=== PATIENT | female | born 1955 | race Caucasian/White ===

== ENCOUNTER 2024-01-06 20:19 | Emergency (ER) | payer MEDICARE, SELFPAY ==
[2024-01-06 20:20] VITALS: BP 165/110
[2024-01-06] MEDS: VALIUM 2 MG PO (21:25)
--- NOTE | 2024-01-06 21:30 | ED.GENMED ---
History of Present Illness
General
Chief Complaint: Musculo-Skeletal Complaint
Source: patient
Exam Limitations: none
Time Seen by Provider: 01/06/24 21:05
Travel History
Have you had any contact with someone who has COVID-19?: No
Do you have any symptoms of coronavirus? Fever > 100 degrees, chills, cough, shortness of breath, sore throat, loss of taste or smell, muscle aches, or headache?: No
History of Present Illness
History of Present Illness:
This is a 68 year old female that comes in with c/o neck pain. States that she started on Saturday with like a stiff neck. Significant other states that this started before . State that her neck pain has continued to get worse. State that she
has a headache, ear pain and around to the jaw area. States that she has been nauseated with the pain. States that there was no Injury. Denies any new pillows or mattress. Denies any fever, chills, chest pain, SOB, abd pain, vomiting, diarrhea,
dizziness, urinary burning.
Past History
Past History
ED Past Medical History: GERD, HTN, Psychiatric (Anxiety, Depression, OCD, Panic disorder), Other (DJD, C. difficile, uterine fibroids, Back pain, IBS) and Other (C. difficile colitis)
ED Past Surgical History: Cholecystectomy, Gynecological (Uterine ablation) and Other (cataracts)
Social History
Tobacco: Non-smoker
Alcohol: None
Personal:
Living: with family
Review of Systems
Review of Systems
All Other Systems: ROS reviewed and negative except as documented in HPI and ROS
Constitutional: Reports no symptoms; Denies fever or chills
EENT: Reports no symptoms
Respiratory: Reports no symptoms; Denies cough or trouble breathing
Cardiac: Reports no symptoms; Denies chest pain
ABD/GI: Reports nausea; Denies abdominal pain, vomiting or diarrhea
: Reports no symptoms; Denies dysuria, frequency or urgency
Musculoskeletal: Reports neck pain
Skin: Reports no symptoms
Neurological: Reports headache; Denies dizzy
Psychiatric: Reports no symptoms
Phy Exam
General Physical Exam
General Presentation: no apparent distress
General age: appears stated age
General Skin: warm and dry
General Habitus: normal
General Mental: alert
General Hydration: appears well hydrated
ENT Exam
ENT Exam: TM's normal and pharynx normal
Eye Exam
Eye Exam: EOMI
Cardiovascular Exam
Cardiovascular Exam: regular rate/rhythm, no edema and normal peripheral pulses
Pulmonary Exam
Pulmonary Exam: lungs clear, no respiratory distress, no rales, chest non tender, no crackles, no rhonchi, no wheezing and no cough
Gastrointestinal Exam
Gastrointestinal Exam: normal bowel sounds, non tender, soft, no organomegaly, no pulsatile mass, non distended and other (obese)
Musculoskeletal Exam
Musculoskeletal Exam: full ROM and neck pain (Neck tenderness lateral to the neck and into the Trapeziums muscle, Difficulty moving head due to neck pain)
Skin Exam
Skin Exam: normal color, warm/dry, no rash and no petechia
Psychiatric Exam
Psychiatric Exam: normal mood/affect
Course
Orders/Labs/Results
Orders:
Orders
01/06/24 21:16
CT Cervical Spine W/o Iv Contr Urgent
Comment:
Reason For Exam: Neck pain
Dexamethasone Sod Phosphate [Decadron] 20 mg IV NOW STA
Diazepam [Valium] 2 mg PO NOW STA
01/06/24 21:31
CT Head W/o Iv Contrast Urgent
Comment:
Reason For Exam: Headache, Neck pain from the base of the skull
01/06/24 21:33
Complete Blood Count/With Diff Urgent
Comprehensive Metabolic Panel Urgent
Abnormal Lab Results
01/06/24
21:33
RBC 4.07 L 10^6/uL
(4.20-5.40)
Hct 36.0 L %
(37.0-47.0)
MCH 31.2 H pg
(27.0-31.0)
Abs Immat Gran (auto) 0.1 H 10^3/uL
(0-0.05)
Absolute Neuts (auto) 6.9 H 10^3/uL
(1.4-6.5)
Immature Gran % 0.7 H %
(0-0.5)
Lymphocytes % 17.9 L %
(20.5-51.1)
Sodium 133 L mmol/L
(135-145)
Chloride 94 L mmol/L
(98-107)
Glucose 147 H mg/dl
(70-99)
AST 57 H U/L
(14-36)
ALT 73 H U/L
(0-35)
01/06/24 21:33
01/06/24 21:33
Sodium slightly low. Chloride low. Glucose nonfasting. AST/ALT elevation.
Vital Signs
Initial and Last Documented VS:
Initial Vital Signs
Temp Pulse Resp BP Pulse Ox
97.8 F 114 28 165/110 98
01/06/24 20:20 01/06/24 20:20 01/06/24 20:20 01/06/24 20:20 01/06/24 20:20
Last Documented Vital Signs
Temp Pulse Resp BP Pulse Ox
97.8 F 114 28 165/110 98
01/06/24 20:20 01/06/24 20:20 01/06/24 20:20 01/06/24 20:20 01/06/24 20:20
MDM/Problems Addressed
Differential Diagnosis Includes:
Cervical muscle spasm. Degenerative disc disease
MDM/Problems Addressed:
This is a 68 year old female that comes in with c/o neck pain. States that this started on Saturday and her significant other states that it started before . States that it then got worse on Saturday. States that she has discomfort form the
base of the skull lateral to the cervical spine and into the shoulder and around to the front of her neck.
Will check labs, CT head and neck. Will give Valium to relax the muscles.
Back into see patient. Reviewed labs and CT findings. Will place patient on Flexeril and she can alternate with Tylenol 1000mg every 6 hours and Ibuprofen 600mg every 6 hour to help with pain. Patient to follow up with the family doctor or the
computer support specialist instructor. Patient to return with any concerns .
Chronic conditions affecting care:
NA
Acute Exacerbation and/or Progression of Chronic Illness:
NA
*Radiology
Radiology exam reviewed: radiology read reviewed (CT head-No acute intracranial abnormality noted. Cervical spine- No acute fracture the cervical spine. Mild reversal of normal cervical spinal lordosis. New. This can be seen with muscular spasm.
Multilevel degenerative disc disease as described above. Progressed at each level. )
*Pulse Oximetry
Patient hypoxic: no
*EKG
Interpreted by ED Provider?: NA
Rate: EKG- N/A
*Material Worker Interpretation
Rate: Material Worker- N/A
*Critical Care Note
Total Time (30-74mins, 75-104mins- exclusive of procedures): Not Applicable
ED Attending Note
-
Portions of this chart may have been created with voice recognition software.� Occasional wrong word or��sound alike� substitutions may have occurred due to the inherent limitations of voice recognition software.
Discharge Plan
Departure
Patient Disposition: Home (Routine Discharge)
Date of Disposition: 01/06/24
Time of Disposition: 23:11
Patient with high blood pressure during this ER visit?: Yes
Condition: Good
Covid-19: Not Applicable
Discharge Problem:
Cerivcal muscle spasm
Instructions: Muscle Spasms (DC), BLOOD PRESSURE
Prescriptions:
New
cyclobenzaprine 10 mg tablet
10 mg PO TID PRN (Reason: Muscle spasm) Qty: 15 0RF
No Action
Magnesium
1 tab PO DAILY Qty: 0 0RF
gabapentin 400 mg Capsule
400 mg PO BID
hydrochlorothiazide 25 mg Tablet
25 mg PO DAILY
lisinopril 40 mg Tablet
40 mg PO DAILY
hydromorphone [Dilaudid] 2 mg tablet
2 mg PO Q8H PRN (Reason: Pain) Qty: 6 0RF
Referrals:
Linh Lopez CRNP [Family Provider] - Call in 1-3 days for appt
Daryl Yañez MD [Active] - Call in 1-3 days for appt
Activity Restrictions/Additional Instructions:
As discussed, your blood work shows that your liver enzymes are slightly elevated. This can be due to a virus or medication. Please follow up with your family doctor for repeat labs. Your CT of the head is normal and your CT of the cervical spine
shows that there is muscle spasms. You have been given a Prescription for Flexeril and this has been sent to your Pharmacy. You have been given your first dose here. This can make your tired. Please no driving or alcohol when taking. You may also
use heat or ice to the neck. Please use Tylenol 1000mg every 6 hours for pain and alternate with Ibuprofen 600mg every 6 hours with food for pain. So it you take Tylenol at 9am, the Ibuprofen can be taken at 12noon and the Tylenol will be due at 3pm
and Ibuprofen at 6pm. Follow up with the family doctor or the computer support specialist instructor for further evaluation. IF YOU HAVE ANY OTHER CONCERNS PLEASE RETURN TO THE EMERGENCY ROOM.
Interventions
Interventions:
*Risk Screen - Suicide Last Done: 01/06/24 20:20
*Neglect/Abuse Screening Last Done: 01/06/24 20:20
ED- Fall Risk Assessment Last Done: 01/06/24 21:25
*ED COVID-19 Vaccine History Last Done: 01/06/24 21:36
ED-Musculoskeletal Assessment Last Done: 01/06/24 21:25
Discharge Date and Time
Print Language: MOSOTHO
[2024-01-06] MEDS: DECADRON 20 MG IV (21:33)
[2024-01-06 21:36] VITALS: BMI 42.7
[2024-01-06 21:43] LABS: % Basophils 0.3 % (0-2); % Eosinophils 1.4 % (0-6); % Immature Granulocytes 0.7 % (0-0.5); % Lymphocytes 17.9 % (20.5-51.1); % Monocytes 6.4 % (1.7-9.3); % Neutrophils 73.3 % (42.2-75.2); Absolute Eosinophils 0.1 10^3/uL (0-0.7); Absolute Immature Granulocytes 0.1 10^3/uL (0-0.05); Absolute Lymphocytes 1.7 10^3/uL (1.2-3.4); Absolute Monocytes 0.6 10^3/uL (0.1-0.6); Absolute Neutrophils 6.9 10^3/uL (1.4-6.5); Hemoglobin 12.7 g/dL (12.0-16.0); Mean Corp Hgb Conc. 35.3 g/dL (33.0-37.0); Mean Corpuscular Hgb 31.2 pg (27.0-31.0); Mean Corpuscular Volume 88.5 fL (81.0-99.0); Nucleated Red Blood Cells % 0 %; Platelet Count 287 10^3/uL (130-400); Red Blood Cell Count 4.07 10^6/uL (4.20-5.40); Red Cell Dist. Width 12.7 % (11.5-14.5); White Blood Cell Count 9.4 10^3/uL (4.8-10.8)
[2024-01-06 22:10] LABS: ALT (SGPT) 73 U/L (0-35); AST (SGOT) 57 U/L (14-36); Albumin 4.4 g/dl (3.5-5.0); Alkaline Phosphatase 111 U/L (38-126); Blood Urea Nitrogen 17 mg/dl (7-17); Carbon Dioxide 30 mmol/L (22-30); Chloride 94 mmol/L (98-107); Estimated Creatinine Clearance 105 ml/min; Glucose 147 mg/dl (70-99); Sodium 133 mmol/L (135-145); Total Bilirubin 0.4 mg/dl (0.2-1.3); Total Protein 7.4 g/dl (6.3-8.2); eGFR > 60.00
[2024-01-06] MEDS: FLEXERIL 10 MG PO (23:14)
[2024-01-06 23:17] VITALS: BP 150/68
== END 2024-01-06 23:25 | disposition home or self-care (01) ==
LOC: EMR 20:19
PROVIDERS: Clinical Nurse Specialist Family Health; EMERGENCY PHYSICIAN Emergency Medicine; FAMILY PHYSICIAN Nurse Practitioner Adult Health
DX: M54.2 Cervicalgia (principal); K21.9 Gastro-esophageal reflux disease without esophagitis; I10 Essential (primary) hypertension; F41.8 Other specified anxiety disorders; F42.9 Obsessive-compulsive disorder, unspecified; F41.0 Panic disorder [episodic paroxysmal anxiety]; K58.9 Irritable bowel syndrome, unspecified; Z90.49 Acquired absence of other specified parts of digestive tract
CPT/HCPCS: 99284; 96374; 70450; 72125; 80053; 85025

== ENCOUNTER 2024-06-13 10:27 | Emergency (ER) | payer MEDICARE, SELFPAY ==
[2024-06-13 10:41] VITALS: BP 172/94
--- NOTE | 2024-06-13 10:56 | ED.GENMED ---
History of Present Illness
<Estella Hurtado, PAN HELPER - Last Filed: 06/13/24 16:03>
General
Chief Complaint: Throat Problem
Source: patient
Exam Limitations: none
Time Seen by Provider: 06/13/24 10:55
Nursing documentation reviewed up to this point in time: agreed with
History of Present Illness
History of Present Illness:
69 yo female w h/o HTN, GERD, OCD, Anxiety/depression, panic disorder, presents stating she developed a right ear ache 5 days ago that has gradually become more painful with pain spreading down right side of neck, under chin and she also has a
headache which is not unusual 'but I always get headaches.' Denies fever, chills, feels nausea, no vomiting.
Past History
<Estella Hurtado, PAN HELPER - Last Filed: 06/13/24 16:03>
Past History
ED Past Medical History: GERD, HTN, Psychiatric (Anxiety, Depression, OCD, Panic disorder), Other (DJD, C. difficile, uterine fibroids, Back pain, IBS) and Other (C. difficile colitis)
ED Past Surgical History: Cholecystectomy, Gynecological (Uterine ablation) and Other (cataracts)
Social History
Tobacco: Non-smoker
Alcohol: None
Personal:
Living: with family
Review of Systems
<Estella Hurtado, PAN HELPER - Last Filed: 06/13/24 16:03>
Review of Systems
Allergies reviewed?: Yes
All Other Systems: ROS reviewed and negative except as documented in HPI and ROS
Constitutional: Denies fever or chills
EENT: Reports other (pain right ear, right side throat, right side face); Denies sore throat, mouth pain or mouth swelling
Respiratory: Denies trouble breathing
Cardiac: Denies chest pain
ABD/GI: Denies abdominal pain, nausea or vomiting
: Denies dysuria or difficulty voiding
Musculoskeletal: Reports no symptoms
Skin: Reports no symptoms
Neurological: Reports headache; Denies dizzy, weakness or numbness
Phy Exam
<Estella Hurtado PAN HELPER - Last Filed: 06/13/24 16:03>
Physical Exam
Physical Exam:
GENERAL: No acute distress. A&Ox3.
CONSTITUTIONAL: Afebrile.
EYES: PERRL, conjunctivae normal
Neck: Supple, fatty tissue under chin with a rubbery, firm mobile palpable mass about 1 cm in size. No notable swelling of neck. Skin is not swollen or red, no vesicular rash. There are scattered scaly eczema like lesions over both sided of face.
ENMT: moist mucus membranes, Pharynx nl, swallowing and speaking well. No dental pain to palpation. No intraoral lesions. No trismus. Tongue and uvula midline. R ear very tender with examination, no erythema or swelling of the outer ear. Tragus
very tender to touch, no mastoid tenderness. Tender over TMJ, right side neck to clavicle. No redness or swelling of these areas.
RESPIRATORY: Regular respirations, nonlabored, lungs clear.
CARDIOVASCULAR: Regular rate and rhythm, no murmurs, no rubs.
GI: Soft, nontender, normal BS
MUSCULOSKELETAL: Moves with ease. Well perfused.
SKIN: Warm, dry, pink
PSYCH: Normal mood and affect. Well kept, interactive and appropriate
NEUROLOGIC: Awake, alert and oriented. No focal neurological deficits
Course
<Estella Hurtado, PAN HELPER - Last Filed: 06/13/24 16:03>
Orders/Labs/Results
Orders:
Orders
06/13/24 11:12
CT Neck With Iv Contrast Urgent
Comment:
Reason For Exam: right side neck, ear, submandibular pain
06/13/24 11:13
0.9% Sodium Chloride 500 ml [Nss] 500 ml IV BOLUS
HYDROmorphone [Dilaudid] 0.5 mg IV NOW STA
06/13/24 11:23
Complete Blood Count/With Diff Urgent
Comprehensive Metabolic Panel Urgent
06/13/24 13:50
Azithromycin [Zithromax] 500 mg PO NOW STA
Abnormal Lab Results
06/13/24
11:23
RBC 4.17 L 10^6/uL
(4.20-5.40)
Hct 35.5 L %
(37.0-47.0)
Immature Gran % 0.6 H %
(0-0.5)
Monocytes % 9.6 H %
(1.7-9.3)
Sodium 130 L mmol/L
(135-145)
Chloride 88 L mmol/L
(98-107)
Carbon Dioxide 31 H mmol/L
(22-30)
Glucose 118 H mg/dl
(70-99)
AST 55 H U/L
(14-36)
ALT 55 H U/L
(0-35)
06/13/24 11:23
06/13/24 11:23
Vital Signs
Initial and Last Documented VS:
Initial Vital Signs
Temp Pulse Resp BP Pulse Ox
98 F 87 18 172/94 96
06/13/24 10:41 06/13/24 10:41 06/13/24 10:41 06/13/24 10:41 06/13/24 10:41
Last Documented Vital Signs
Temp Pulse Resp BP Pulse Ox
98 F 80 16 132/74 95
06/13/24 10:41 06/13/24 13:50 06/13/24 13:50 06/13/24 13:47 06/13/24 11:55
<Tg Young MD - Last Filed: 06/13/24 11:14>
Orders/Labs/Results
Orders:
Orders
06/13/24 11:12
CT Neck With Iv Contrast Urgent
Comment:
Reason For Exam: right side neck, ear, submandibular pain
06/13/24 11:13
0.9% Sodium Chloride 500 ml [Nss] 500 ml IV BOLUS
HYDROmorphone [Dilaudid] 0.5 mg IV NOW STA
06/13/24 11:23
Complete Blood Count/With Diff Urgent
Comprehensive Metabolic Panel Urgent
06/13/24 13:50
Azithromycin [Zithromax] 500 mg PO NOW STA
Abnormal Lab Results
06/13/24
11:23
RBC 4.17 L 10^6/uL
(4.20-5.40)
Hct 35.5 L %
(37.0-47.0)
Immature Gran % 0.6 H %
(0-0.5)
Monocytes % 9.6 H %
(1.7-9.3)
Sodium 130 L mmol/L
(135-145)
Chloride 88 L mmol/L
(98-107)
Carbon Dioxide 31 H mmol/L
(22-30)
Glucose 118 H mg/dl
(70-99)
AST 55 H U/L
(14-36)
ALT 55 H U/L
(0-35)
06/13/24 11:23
06/13/24 11:23
Vital Signs
Initial and Last Documented VS:
Initial Vital Signs
Temp Pulse Resp BP Pulse Ox
98 F 87 18 172/94 96
06/13/24 10:41 06/13/24 10:41 06/13/24 10:41 06/13/24 10:41 06/13/24 10:41
Last Documented Vital Signs
Temp Pulse Resp BP Pulse Ox
98 F 80 16 132/74 95
06/13/24 10:41 06/13/24 13:50 06/13/24 13:50 06/13/24 13:47 06/13/24 11:55
<Estella Hurtado PAN HELPER - Last Filed: 06/13/24 16:03>
MDM/Problems Addressed
Differential Diagnosis Includes:
AOM, AOE, lymphadenopathy, abscess, shingles
MDM/Problems Addressed:
69 yo female w h/o HTN, GERD, OCD, Anxiety/depression, panic disorder, presents stating she developed a right ear ache 5 days ago that has gradually become more painful with pain spreading down right side of neck, under chin and she also has a
headache which is not unusual 'but I always get headaches.' Denies fever, chills, feels nausea, no vomiting.
No vesicular rash, no erythema, would expect rash by now, the 5th day of symptoms
R ear very tender with examination. No redness or swelling of external ear or surrounding skin.
Mass under chin could be reactive lymph node.
Rash on face is bilateral, scaly and consistent with eczema, not shingles.
Case discussed with Dr. Young who evaluated pt.
CBC normal
CMP: Mild hyponatremia IVF's infusing
1:[address] neck with IV contrast radiology report read: IMPRESSION:
1. Interval increase in mild bilateral level 1 cervical lymphadenopathy (right greater than left) since the prior examination performed 01/06/2024. Diagnostic possibilities are (1) acute infectious or inflammatory lymphadenopathy given pain in
this region or (2) less likely malignant lymphadenopathy such as lymphoma.
2. Mildly enlarged bilateral intraparotid lymph nodes.
3. Severe discogenic degenerative disease at C5/C6 and C6/C7 with disc-osteophyte complexes causing mild spinal cord compression and central canal stenosis at both levels.
Discussed findings with pt and son
Rx for Z pack sent to her pharmacy for AOM
Ibuprofen as needed for pain
F/U with PCP or ENT
BP normalized.
<Estella Hurtado PAN HELPER - Last Filed: 06/13/24 16:03>
*Critical Care Note
Total Time (30-74mins, 75-104mins- exclusive of procedures): Not Applicable
ED Attending Note
<Estella Hurtado NP - Last Filed: 06/13/24 16:03>
-
Portions of this chart may have been created with voice recognition software.� Occasional wrong word or��sound alike� substitutions may have occurred due to the inherent limitations of voice recognition software.
<Tg Young MD - Last Filed: 06/13/24 11:14>
ED Attending Note
Patient seen and examined by attending physician: Yes
I performed the substantive portion of visit, reviewed & personally made and approve the management plan that is documented in note by myself or DILLON.: Yes
ED Attending Note:
Patient presents with gradual onset of right ear pain which she states has progressed to causing a headache and radiation of pain and swelling under her chin area. Patient appears nontoxic. She is able to speak and swallow without difficulty.
There is no trismus or tongue protrusion. There is no pooling of saliva. Patient has significant ear pain when I look at her right tympanic membrane. Patient has firm tenderness of her submandibular area, which may be an inflamed gland. Due to
her significant submandibular pain, we will do a CT with IV contrast to rule out deep space infection.
Discharge Plan
Departure
Patient Disposition: Home (Routine Discharge)
Date of Disposition: 06/13/24
Time of Disposition: 13:45
Patient with high blood pressure during this ER visit?: No
Condition: Good
Discharge Problem:
Right acute otitis media, Lymphadenopathy of left cervical region
Instructions: Lymphadenitis (DC), Ear Infections in Adults (DC)
Prescriptions:
New
azithromycin 250 mg tablet
250 mg PO DAILY 4 Days Qty: 4 0RF
No Action
Magnesium
1 tab PO DAILY Qty: 0 0RF
gabapentin 400 mg Capsule
400 mg PO BID
hydrochlorothiazide 25 mg Tablet
25 mg PO DAILY
lisinopril 40 mg Tablet
40 mg PO DAILY
hydromorphone [Dilaudid] 2 mg tablet
2 mg PO Q8H PRN (Reason: Pain) Qty: 6 0RF
cyclobenzaprine 10 mg tablet
10 mg PO TID PRN (Reason: Muscle spasm) Qty: 15 0RF
Referrals:
Linh Lopez CRNP [Family Provider] - Call in 1-3 days for appt
Activity Restrictions/Additional Instructions:
As we discussed, I sent a prescription to your pharmacy for Azithromycin to take 250 mg daily for 4 days starting tomorrow as we gave you a dose here today.
See your doctor or the ENT doctor in 5-7 days for recheck
Interventions
Interventions:
*Risk Screen - Suicide Last Done: 06/13/24 10:29
*General Assessment Last Done: 06/13/24 10:41
*Neglect/Abuse Screening Last Done: 06/13/24 10:41
ED- Fall Risk Assessment Last Done: 06/13/24 14:00
*ED COVID-19 Vaccine History Last Done: 06/13/24 11:37
*Nursing Disposition Last Done: 06/13/24 14:00
ED-EENT Assessment Last Done: 06/13/24 11:37
ED- Pulmonary Assessment Last Done: 06/13/24 11:37
Discharge Date and Time
Discharge Date/Time: 06/13/24 14:00
Print Language: ROMANIAN
[2024-06-13] MEDS: DILAUDID 0.5 MG IV (11:26)
[2024-06-13] MEDS: NSS 500 IV (11:26)
[2024-06-13 11:33] VITALS: BP 177/107
[2024-06-13 11:33] LABS: % Basophils 0.5 % (0-2); % Eosinophils 1.9 % (0-6); % Immature Granulocytes 0.6 % (0-0.5); % Lymphocytes 20.5 % (20.5-51.1); % Monocytes 9.6 % (1.7-9.3); % Neutrophils 66.9 % (42.2-75.2); Absolute Eosinophils 0.1 10^3/uL (0-0.7); Absolute Lymphocytes 1.3 10^3/uL (1.2-3.4); Absolute Monocytes 0.6 10^3/uL (0.1-0.6); Absolute Neutrophils 4.3 10^3/uL (1.4-6.5); Hematocrit 35.5 % (37.0-47.0); Hemoglobin 12.8 g/dL (12.0-16.0); Mean Corp Hgb Conc. 36.1 g/dL (33.0-37.0); Mean Corpuscular Hgb 30.7 pg (27.0-31.0); Mean Corpuscular Volume 85.1 fL (81.0-99.0); Mean Platelet Volume 9.2 fL (7.4-10.4); Nucleated Red Blood Cells % 0 %; Platelet Count 273 10^3/uL (130-400); Red Blood Cell Count 4.17 10^6/uL (4.20-5.40); Red Cell Dist. Width 12.3 % (11.5-14.5); White Blood Cell Count 6.4 10^3/uL (4.8-10.8)
[2024-06-13 11:43] LABS: ALT (SGPT) 55 U/L (0-35); AST (SGOT) 55 U/L (14-36); Albumin 4.4 g/dl (3.5-5.0); Alkaline Phosphatase 90 U/L (38-126); Blood Urea Nitrogen 13 mg/dl (7-17); Calcium 9.4 mg/dl (8.4-10.2); Carbon Dioxide 31 mmol/L (22-30); Chloride 88 mmol/L (98-107); Glucose 118 mg/dl (70-99); Potassium 3.8 mmol/L (3.5-5.1); Sodium 130 mmol/L (135-145); Total Bilirubin 0.9 mg/dl (0.2-1.3); Total Protein 7.2 g/dl (6.3-8.2); eGFR > 60.00
[2024-06-13 13:47] VITALS: BP 132/74
[2024-06-13] MEDS: ZITHROMAX 500 MG PO (13:55)
== END 2024-06-13 14:00 | disposition home or self-care (01) ==
LOC: EMR 10:27
PROVIDERS: Registered Nurse; EMERGENCY PHYSICIAN Emergency Medicine; FAMILY PHYSICIAN Nurse Practitioner Adult Health
DX: H66.91 Otitis media, unspecified, right ear (principal); R59.0 Localized enlarged lymph nodes; R51.9 Headache, unspecified; R22.0 Localized swelling, mass and lump, head; R68.84 Jaw pain; R21 Rash and other nonspecific skin eruption; E87.1 Hypo-osmolality and hyponatremia; M50.022 Cervical disc disorder at C5-C6 level with myelopathy; M48.02 Spinal stenosis, cervical region; I10 Essential (primary) hypertension; K21.9 Gastro-esophageal reflux disease without esophagitis; F42.9 Obsessive-compulsive disorder, unspecified; F41.9 Anxiety disorder, unspecified; F32.A Depression, unspecified; F41.0 Panic disorder [episodic paroxysmal anxiety]; K58.9 Irritable bowel syndrome, unspecified; K52.9 Noninfective gastroenteritis and colitis, unspecified; M19.90 Unspecified osteoarthritis, unspecified site; Z90.49 Acquired absence of other specified parts of digestive tract; Z88.5 Allergy status to narcotic agent; Z88.0 Allergy status to penicillin; Z88.2 Allergy status to sulfonamides; Z88.8 Allergy status to other drugs, medicaments and biological substances; Z88.1 Allergy status to other antibiotic agents; Z91.040 Latex allergy status
CPT/HCPCS: 99285; 96361; 96374; 70491; 80053; 85025; Q9967

== ENCOUNTER 2024-06-14 19:38 | Inpatient (IN) | payer MEDICARE, SELFPAY ==
[2024-06-14] VITALS (9 sets, daily range): BP systolic 132–158; BP diastolic 67–95; BMI 41.1; BMI 40.5
--- NOTE | 2024-06-14 15:33 | ED.GENMED ---
History of Present Illness
<Peyton Shi NP - Last Filed: 06/14/24 22:15>
General
Chief Complaint: Facial Problem
Source: patient
Exam Limitations: none
Time Seen by Provider: 06/14/24 15:15
Nursing documentation reviewed up to this point in time: agreed with
History of Present Illness
History of Present Illness:
Patient to ED with complaint of severe right ear and facial pain. States her ear pain started on saturday and continued to worsen. Reports right facial rash involving right ear, right cheeck and jaw, lips, tongue. Taking tylenol without any pain
relief. Reports difficulty swallowing due to pain. Brought to ED todayby son for eval.
Past History
<Peyton Shi NP - Last Filed: 06/14/24 22:15>
Past History
ED Past Medical History: GERD, HTN, Psychiatric (Anxiety, Depression, OCD, Panic disorder), Other (DJD, C. difficile, uterine fibroids, Back pain, IBS) and Other (C. difficile colitis)
ED Past Surgical History: Cholecystectomy, Gynecological (Uterine ablation) and Other (cataracts)
Social History
Tobacco: Non-smoker
Alcohol: None
Personal:
Living: with family
Review of Systems
<Peyton Shi NP - Last Filed: 06/14/24 22:15>
Review of Systems
Allergies reviewed?: Yes
All Other Systems: ROS reviewed and negative except as documented in HPI and ROS
Constitutional: Reports fatigue
EENT: Reports mouth pain (pain to mouth, lips, tongue)
Respiratory: Reports no symptoms
Cardiac: Reports no symptoms
ABD/GI: Reports no symptoms
: Reports no symptoms
Musculoskeletal: Reports no symptoms
Skin: Reports other (painful vesicular rash to right ear, right side of face, lips, tongue, chin.)
Neurological: Reports headache
Psychiatric: Reports no symptoms
Phy Exam
<Peyton Shi NP - Last Filed: 06/14/24 22:15>
General Physical Exam
General Presentation: severe distress (severe ear, facial pain)
General age: appears stated age
General Skin: warm and dry
General Habitus: normal
General Mental: alert
General Hydration: dry mucous membranes
ENT Exam
ENT Exam: EOMI, TM's normal (Unable to visualize TM due to pain. Vesicles on right auricle), pharynx normal, normocephalic and swallowing well
Eye Exam
Eye Exam: PERRL, EOMI, cornea clear (fluorescein stain, slit lamp exam), conjunctiva normal, globe normal and other (No lesions involving right orbit.)
Eye Exam General: PERRL: bilateral
Conjunctival Changes: bilateral: none
Type of Exam: slit lamp and fluorescein
Cardiovascular Exam
Cardiovascular Exam: regular rate/rhythm
Pulmonary Exam
Pulmonary Exam: no respiratory distress and chest non tender
Gastrointestinal Exam
Gastrointestinal Exam: non tender and soft
Musculoskeletal Exam
Musculoskeletal Exam: full ROM and neuro vasc intact
Skin Exam
Skin Exam: warm/dry and other (Painful vesicular rash to right side of face, right ear, lips, tongue, chin consistent with herpes zoster.)
Psychiatric Exam
Psychiatric Exam: normal mood/affect
Course
<Peyton Shi NP - Last Filed: 06/14/24 22:15>
Orders/Labs/Results
Orders:
Orders
06/14/24 15:31
HYDROmorphone [Dilaudid] 0.5 mg IV NOW STA
Ondansetron Injectable [Zofran] 4 mg IV NOW STA
06/14/24 15:32
0.9% Sodium Chloride 500 ml [Nss] 500 ml IV BOLUS
06/14/24 15:44
Dexamethasone Sod Phosphate [Decadron] 10 mg IV NOW STA
06/14/24 15:45
Complete Blood Count/With Diff Urgent
Comprehensive Metabolic Panel Urgent
06/14/24 16:47
HYDROmorphone [Dilaudid] 0.5 mg IV NOW STA
06/14/24 16:58
Acyclovir [Zovirax Injection] 1,000 mg 0.9% Sodium Chloride 250 ml [Nss] 250 ml IV NOW
06/14/24 17:20
Fluorescein Sodium [Ful-Leydi] 1 mg .ROUTE .STK-MED ONE
Tetracaine HCl [Tetracaine 0.5% Ophthalmic Solution] 1 drop .ROUTE .STK-MED ONE
06/14/24 19:05
Admit/Transfer Patient As Directed
Co-Sign Provider:
Level of Care: Inpatient admission
Assign to:: Medical/Surgical
Physician / Group: Hospitalist
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
Reason for Hospitalization: Zoster, Darrell Ramires syndrome
Expected length of stay greater than two midnights?: Yes
ELOS- Estimated Length of Stay in days: 3
I certify the patient meets the requirements for IP care: Yes
PRN Pain Medication Management As Directed
May give lesser potent ordered pain med per pt: Yes
preference::
Protocol:: Medication orders for pain may be administered in a
manner that supports deferring to patient preference
when the pt is:
- Requesting an ordered lesser potent pain medication.
Least to most potent pain medications are defined
as: acetaminophen < NSAID < tramadol < opioids
(morphine, oxycodone, hydromorphone).
- Requesting a lesser dose of the same medication IF
ORDERED.
- Requesting a less intrusive route of administration
if both routes are prescribed by the provider (PO <
IV).
06/14/24 19:07
Code Status As Directed
Resuscitation Status: Full Code
06/14/24 19:52
HYDROmorphone [Dilaudid] 1 mg IV Q4HPRN PRN
06/14/24 20:37
0.9% Sodium Chloride 1000 ml [Nss] 1,000 ml IV 100 mls/hr
Bisacodyl [Dulcolax] 10 mg RECTAL [id number] PRN
Docusate W/Senna [Senokot-S] 1 tablet PO BIDPRN PRN
Mag&Al/Sim/Diphenhyd/Lidocaine [First-Mouthwash Blm Suspension] 5 ml PO QIDPRN PRN
Ondansetron Injectable [Zofran] 4 mg IV Q6HPRN PRN
Polyethylene Glycol Powder [Miralax] 17 grams PO DAILYPRN PRN
06/14/24 20:37
INFECTIOUS DISEASE CONSULT Routine
Consulting Provider: Nadia Del Angel
Was physician already notified: Yes
Reason for consult: Zoster on face, possible darrell ramires syndrome
Activity As Directed
Activity Level: Ambulate
Nursing to Place Non Medication Order As Directed
Physician Order: Capnea monitoring because of opioid pain management
Above order entered?: Yes
Pneumatic Compression Sleeves As Directed
Type: Knee high
Precautions As Directed
Type of Precautions: Contact
Droplet
Comment: Until lesions crust
Vital Signs As Directed
Frequency: Per unit guidelines
DX Deep Vein Thrombosis Video Routine
06/14/24 22:00
Acyclovir [Zovirax Injection] 750 mg 0.9% Sodium Chloride 250 ml [Nss] 250 ml IV Q8H
06/15/24 00:00
Dexamethasone Sod Phosphate [Decadron] 6 mg IV Q8H
06/15/24 Breakfast
Full Liquids
At Your Request: Full Participation
Does patient need a safe tray?: No
Basic Metabolic Panel IN AM
Complete Blood Count/No Diff IN AM
06/15/24 08:00
Hydrochlorothiazide [Oretic] 25 mg PO DAILY
Lisinopril [Zestril] 40 mg PO DAILY
Magnesium Oxide 500 mg PO DAILY
Abnormal Lab Results
06/14/24
15:45
Abs Immat Gran (auto) 0.1 H 10^3/uL
(0-0.05)
Absolute Monos (auto) 0.8 H 10^3/uL
(0.1-0.6)
Immature Gran % 0.7 H %
(0-0.5)
Monocytes % 10.2 H %
(1.7-9.3)
Sodium 133 L mmol/L
(135-145)
Chloride 91 L mmol/L
(98-107)
Glucose 132 H mg/dl
(70-99)
AST 62 H U/L
(14-36)
ALT 57 H U/L
(0-35)
06/14/24 15:45
06/14/24 15:45
Vital Signs
Initial and Last Documented VS:
Initial Vital Signs
Temp Pulse Resp BP Pulse Ox
98.3 F 60 16 140/95 96
06/14/24 14:17 06/14/24 14:17 06/14/24 14:17 06/14/24 14:17 06/14/24 14:17
Last Documented Vital Signs
Temp Pulse Resp BP Pulse Ox
97.8 F 97 22 158/82 94
06/14/24 20:57 06/14/24 20:57 06/14/24 20:57 06/14/24 20:57 06/14/24 20:57
Montylt;Sang Villaseñor, DO - Last Filed: 06/14/24 17:03>
Orders/Labs/Results
Orders:
Orders
06/14/24 15:31
HYDROmorphone [Dilaudid] 0.5 mg IV NOW STA
Ondansetron Injectable [Zofran] 4 mg IV NOW STA
06/14/24 15:32
0.9% Sodium Chloride 500 ml [Nss] 500 ml IV BOLUS
06/14/24 15:44
Dexamethasone Sod Phosphate [Decadron] 10 mg IV NOW STA
06/14/24 15:45
Complete Blood Count/With Diff Urgent
Comprehensive Metabolic Panel Urgent
06/14/24 16:47
HYDROmorphone [Dilaudid] 0.5 mg IV NOW STA
06/14/24 16:58
Acyclovir [Zovirax Injection] 1,000 mg 0.9% Sodium Chloride 250 ml [Nss] 250 ml IV NOW
06/14/24 17:20
Fluorescein Sodium [Ful-Leydi] 1 mg .ROUTE .STK-MED ONE
Tetracaine HCl [Tetracaine 0.5% Ophthalmic Solution] 1 drop .ROUTE .STK-MED ONE
06/14/24 19:05
Admit/Transfer Patient As Directed
Co-Sign Provider:
Level of Care: Inpatient admission
Assign to:: Medical/Surgical
Physician / Group: Hospitalist
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
Reason for Hospitalization: Zoster, [place] Ramires syndrome
Expected length of stay greater than two midnights?: Yes
ELOS- Estimated Length of Stay in days: 3
I certify the patient meets the requirements for IP care: Yes
PRN Pain Medication Management As Directed
May give lesser potent ordered pain med per pt: Yes
preference::
Protocol:: Medication orders for pain may be administered in a
manner that supports deferring to patient preference
when the pt is:
- Requesting an ordered lesser potent pain medication.
Least to most potent pain medications are defined
as: acetaminophen < NSAID < tramadol < opioids
(morphine, oxycodone, hydromorphone).
- Requesting a lesser dose of the same medication IF
ORDERED.
- Requesting a less intrusive route of administration
if both routes are prescribed by the provider (PO <
IV).
06/14/24 19:07
Code Status As Directed
Resuscitation Status: Full Code
06/14/24 19:52
HYDROmorphone [Dilaudid] 1 mg IV Q4HPRN PRN
06/14/24 20:37
0.9% Sodium Chloride 1000 ml [Nss] 1,000 ml IV 100 mls/hr
Bisacodyl [Dulcolax] 10 mg RECTAL [id number] PRN
Docusate W/Senna [Senokot-S] 1 tablet PO BIDPRN PRN
Mag&Al/Sim/Diphenhyd/Lidocaine [First-Mouthwash Blm Suspension] 5 ml PO QIDPRN PRN
Ondansetron Injectable [Zofran] 4 mg IV Q6HPRN PRN
Polyethylene Glycol Powder [Miralax] 17 grams PO DAILYPRN PRN
06/14/24 20:37
INFECTIOUS DISEASE CONSULT Routine
Consulting Provider: Nadia Del Angel
Was physician already notified: Yes
Reason for consult: Zoster on face, possible darrell ramires syndrome
Activity As Directed
Activity Level: Ambulate
Nursing to Place Non Medication Order As Directed
Physician Order: Capnea monitoring because of opioid pain management
Above order entered?: Yes
Pneumatic Compression Sleeves As Directed
Type: Knee high
Precautions As Directed
Type of Precautions: Contact
Droplet
Comment: Until lesions crust
Vital Signs As Directed
Frequency: Per unit guidelines
DX Deep Vein Thrombosis Video Routine
06/14/24 22:00
Acyclovir [Zovirax Injection] 750 mg 0.9% Sodium Chloride 250 ml [Nss] 250 ml IV Q8H
06/15/24 00:00
Dexamethasone Sod Phosphate [Decadron] 6 mg IV Q8H
06/15/24 Breakfast
Full Liquids
At Your Request: Full Participation
Does patient need a safe tray?: No
Basic Metabolic Panel IN AM
Complete Blood Count/No Diff IN AM
06/15/24 08:00
Hydrochlorothiazide [Oretic] 25 mg PO DAILY
Lisinopril [Zestril] 40 mg PO DAILY
Magnesium Oxide 500 mg PO DAILY
Abnormal Lab Results
06/14/24
15:45
Abs Immat Gran (auto) 0.1 H 10^3/uL
(0-0.05)
Absolute Monos (auto) 0.8 H 10^3/uL
(0.1-0.6)
Immature Gran % 0.7 H %
(0-0.5)
Monocytes % 10.2 H %
(1.7-9.3)
Sodium 133 L mmol/L
(135-145)
Chloride 91 L mmol/L
(98-107)
Glucose 132 H mg/dl
(70-99)
AST 62 H U/L
(14-36)
ALT 57 H U/L
(0-35)
06/14/24 15:45
06/14/24 15:45
Vital Signs
Initial and Last Documented VS:
Initial Vital Signs
Temp Pulse Resp BP Pulse Ox
98.3 F 60 16 140/95 96
06/14/24 14:17 06/14/24 14:17 06/14/24 14:17 06/14/24 14:17 06/14/24 14:17
Last Documented Vital Signs
Temp Pulse Resp BP Pulse Ox
97.8 F 97 22 158/82 94
06/14/24 20:57 06/14/24 20:57 06/14/24 20:57 06/14/24 20:57 06/14/24 20:57
<Peyton Shi NP - Last Filed: 06/14/24 22:15>
*Critical Care Note
Total Time (30-74mins, 75-104mins- exclusive of procedures): Not Applicable
ED Attending Note
<Peyton Shi NP - Last Filed: 06/14/24 22:15>
-
Portions of this chart may have been created with voice recognition software.� Occasional wrong word or��sound alike� substitutions may have occurred due to the inherent limitations of voice recognition software.
<Sang Villaseñor DO - Last Filed: 06/14/24 17:03>
ED Attending Note
Patient seen and examined by attending physician: Yes
I performed the substantive portion of visit, reviewed & personally made and approve the management plan that is documented in note by myself or DILLON.: Yes
ED Attending Note:
Seen with [employer] examined independently second visit seen here yesterday for facial pain worked up discharged with antibiotics returns, suspect this is zoster perhaps Darrell Ramires
Discharge Plan
Departure
Patient Disposition: Admit
Date of Disposition: 06/14/24
Time of Disposition: 16:58
Presentation/result/management discussed w/ accepting MD/DO: Hospitalist
Patient with high blood pressure during this ER visit?: Yes
Condition: Fair
Covid-19: Not Applicable
Discharge Problem:
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
Interventions
Interventions:
*Risk Screen - Suicide Last Done: 06/14/24 14:17
*General Assessment Last Done: 06/14/24 14:17
*Neglect/Abuse Screening Last Done: 06/14/24 16:03
ED- Fall Risk Assessment Last Done: 06/14/24 16:05
*ED COVID-19 Vaccine History Last Done: 06/14/24 14:17
*Nursing Disposition Last Done: 06/14/24 20:37
ED- Neurological Assessment Last Done: 06/14/24 16:05
ED-Skin Assessment Last Done: 06/14/24 16:05
Discharge Date and Time
Discharge Date/Time: 06/14/24 20:37
[2024-06-14 15:50] LABS: % Basophils 0.5 % (0-2); % Eosinophils 0.5 % (0-6); % Immature Granulocytes 0.7 % (0-0.5); % Lymphocytes 20.5 % (20.5-51.1); % Monocytes 10.2 % (1.7-9.3); % Neutrophils 67.6 % (42.2-75.2); Absolute Immature Granulocytes 0.1 10^3/uL (0-0.05); Absolute Lymphocytes 1.5 10^3/uL (1.2-3.4); Absolute Monocytes 0.8 10^3/uL (0.1-0.6); Hematocrit 38.2 % (37.0-47.0); Hemoglobin 13.7 g/dL (12.0-16.0); Mean Corp Hgb Conc. 35.9 g/dL (33.0-37.0); Mean Corpuscular Hgb 30.6 pg (27.0-31.0); Mean Corpuscular Volume 85.5 fL (81.0-99.0); Mean Platelet Volume 9.1 fL (7.4-10.4); Nucleated Red Blood Cells % 0 %; Platelet Count 284 10^3/uL (130-400); Red Blood Cell Count 4.47 10^6/uL (4.20-5.40); Red Cell Dist. Width 12.4 % (11.5-14.5); White Blood Cell Count 7.4 10^3/uL (4.8-10.8)
[2024-06-14] MEDS: ZOFRAN 4 MG IV (15:57)
[2024-06-14] MEDS: NSS 500 IV (15:57)
[2024-06-14] MEDS: DILAUDID 0.5 MG IV ×2 (15:58→17:04)
[2024-06-14] MEDS: DECADRON 10 MG IV (16:02)
[2024-06-14 16:07] LABS: ALT (SGPT) 57 U/L (0-35); AST (SGOT) 62 U/L (14-36); Albumin 4.7 g/dl (3.5-5.0); Alkaline Phosphatase 77 U/L (38-126); Blood Urea Nitrogen 13 mg/dl (7-17); Calcium 9.8 mg/dl (8.4-10.2); Carbon Dioxide 29 mmol/L (22-30); Chloride 91 mmol/L (98-107); Glucose 132 mg/dl (70-99); Potassium 3.9 mmol/L (3.5-5.1); Sodium 133 mmol/L (135-145); Total Bilirubin 0.8 mg/dl (0.2-1.3); Total Protein 7.7 g/dl (6.3-8.2); eGFR > 60.00
[2024-06-14] MEDS: ZOVIRAX INJECTION 270 MG IV (17:13)
--- NOTE | 2024-06-14 18:49 | HPS.HSE ---
Family Physician
-
Family Physician: JAVI Gardiner
Chief Complaint
-
Facial pain
History of Present Illness
69 woman with severe right ear and facial pain. The ear pain started on saturday and has continued to worsen. She now Reports right facial rash involving right ear, right cheek, jaw, lips, tongue. She took tylenol without any pain relief. She
states there is difficulty swallowing due to pain. She stated the pain at its worse was comparable to childbirth. Dilaudid helped the pain. In ED, her eye was stained, examined, and no lesions were found. Her right TM could not be visualized
because of swelling. She has not had something like this before.
Medical History
Past Medical History
Past Medical History: Reports Other
Additional Past Medical History:
GERD,
essential HTN,
Anxiety,
Depression,
OCD,
Panic disorder
DJD,
C. difficile,
uterine fibroids,
Back pain,
IBS
C. difficile colitis
Cholecystectomy,
Uterine ablation
cataracts
Past Surgical History: Reports Other
Additional Past Surgical History:
See above
Social History
Tobacco: Non-smoker
Alcohol: None
Drug: None
Personal:
Living: With Family
Family History
Family History: Not pertinent
Allergies / Home Medications
Allergies reflects when Allergies were last updated in [facility].
Home Medications with original date entered in [facility]
Allergy/Medication List:
Allergies
Allergy/AdvReac Type Severity Reaction Status Date / Time
cephalexin [From Keflex] Allergy Cdiff Verified 06/13/24 10:41
ketorolac tromethamine Allergy Rash Verified 06/13/24 10:41
[From Toradol]
latex Allergy Rash Verified 06/13/24 10:41
oxycodone HCl [From Percocet] Allergy hallucinati Verified 06/13/24 10:41
ons
Penicillins Allergy Rash Verified 06/13/24 10:41
sulfamethoxazole Allergy Anaphylaxis Verified 06/13/24 10:41
[From Bactrim]
trimethoprim [From Bactrim] Allergy Anaphylaxis Verified 06/13/24 10:41
Home Medications
hydrochlorothiazide 25 mg tablet 25 mg PO DAILY 09/09/23
lisinopril 40 mg tablet 40 mg PO DAILY 09/09/23
Lactobac no.2-Bifidobac no.1-S. thermo 112.5 billion cell capsule (Visbiome) 1 cap PO DAILY 06/14/24
ascorbic acid (vitamin C) 500 mg tablet (Vitamin C) 500 mg PO DAILY 06/14/24
cholecalciferol (vitamin D3) 25 mcg (1,000 unit) tablet (Vitamin D3) 25 mcg PO DAILY 06/14/24
cyanocobalamin (vitamin B-12) 1,000 mcg tablet 1,000 mcg PO DAILY 06/14/24
magnesium oxide 400 mg PO DAILY 06/14/24
therapeutic multivitamin 1 tab PO DAILY 06/14/24
zinc sulfate 50 mg zinc (220 mg) tablet 50 mg PO DAILY 06/14/24
Review of Systems
-
History Source: Patient
A 12 point ROS was completed and negative except as noted: Yes
EENT: Reports See HPI, Mouth Pain and Mouth Swelling
Physical Exam
Vital Signs
Vital Signs
Temp Pulse Resp BP Pulse Ox
98.4 F 75 18 137/68 95
06/14/24 18:29 06/14/24 16:00 06/14/24 16:00 06/14/24 18:00 06/14/24 18:00
Physical Exam
General: Well Developed, Well Nourished, Appears in Distress, Pain and Morbidly Obese
HEENT: Other (swollen red rash on right side of the face, lesions on tongue)
Respiratory: Clear
Cardiac: S1/S2 and Regular Rhythm
GI: Soft, Non Tender and Non Distended
Musculoskeletal: No Clubbing, No Cyanosis, No Edema and Other (LE chronically red)
Skin: Warm, Dry, Rash and Lesions
Neuro: Awake, Alert, Oriented and AO x 3
Psych: Calm
Laboratory Results
-
06/14/24 15:45
06/14/24 15:45
Laboratory Results
Total Bilirubin 0.8 mg/dl (0.2-1.3) 06/14/24 15:45
AST 62 U/L (14-36) H 06/14/24 15:45
ALT 57 U/L (0-35) H 06/14/24 15:45
Alkaline Phosphatase 77 U/L (38-126) 06/14/24 15:45
Data Reviewed
-
Lab Data: Labs Reviewed by me
Impression/Plan
-
IMPRESSION:
69 woman with zoster on her face. Very swollen inner ear, risk for [place] Ramires syndrome. No obvious eye lesions today.
PLAN:
1. Zoster. Severe
IV steroids
IV acyclovir
Analgesic mouthwash
IV pain control
Liquid diet
ID consult
Contact precautions until lesions crust
2. Pain control - may need larger doses of opioids
titrate as needed
Capnea monitoring
Full code
VCD for DVTp
[2024-06-14] MEDS: DILAUDID 1 MG IV ×2 (19:58→23:42)
[2024-06-14] MEDS: NSS 1000 IV (21:43)
--- NOTE | 2024-06-14 23:00 | PTCARENOTE ---
pt is aaox3, reports pain in right ear, face, and mouth. pt also reports difficulty swallowing. pt has shingles to right side of face, chin, and lesions on tongue. small open areas w/ scant drg, and some crusty spots. pt reports decrease hearing in
right ear. denies lightheadedness or dizziness. see mar re: pain management. pt is very anxious. reviewed plan of care. pt placed on bed alarm, capnography, oxygen, and IVF. son at bedside explained dx and treatment.
[2024-06-14] MEDS: DECADRON 6 MG IV (23:05)
[2024-06-14] MEDS: ZOVIRAX INJECTION 265 MG IV (23:05)
[2024-06-15] MEDS: DILAUDID 1 MG IV ×4 (04:01→21:12)
[2024-06-15 07:22] VITALS: BP 143/79
[2024-06-15 07:39] LABS: Hematocrit 36.8 % (37.0-47.0); Mean Corp Hgb Conc. 35.3 g/dL (33.0-37.0); Mean Corpuscular Hgb 31.4 pg (27.0-31.0); Mean Corpuscular Volume 88.9 fL (81.0-99.0); Mean Platelet Volume 9.5 fL (7.4-10.4); Platelet Count 273 10^3/uL (130-400); Red Blood Cell Count 4.14 10^6/uL (4.20-5.40); Red Cell Dist. Width 12.4 % (11.5-14.5); White Blood Cell Count 11.5 10^3/uL (4.8-10.8)
[2024-06-15 07:59] LABS: Blood Urea Nitrogen 16 mg/dl (7-17); Calcium 8.8 mg/dl (8.4-10.2); Carbon Dioxide 24 mmol/L (22-30); Chloride 97 mmol/L (98-107); Estimated Creatinine Clearance 55 ml/min; Glucose 137 mg/dl (70-99); Potassium 4.1 mmol/L (3.5-5.1); Sodium 135 mmol/L (135-145); eGFR 54.06
[2024-06-15] MEDS: NSS 1000 IV ×2 (08:31→17:48)
[2024-06-15] MEDS: FLUSH (NSS) 1 FLUSH IV ×4 (08:32→17:32)
[2024-06-15] MEDS: ZESTRIL 40 MG PO (09:07)
[2024-06-15] MEDS: DECADRON 6 MG IV ×3 (09:10→23:03)
[2024-06-15] MEDS: ZOVIRAX INJECTION 265 MG IV ×3 (09:10→23:03)
[2024-06-15] MEDS: ORETIC 25 MG PO (09:14)
[2024-06-15] MEDS: MAGNESIUM OXIDE PO ×2 (09:14→10:03)
--- NOTE | 2024-06-15 10:41 | W.PN.HOSP.TC ---
Today's Communication/Plan
-
see A/P
Assessment / Plan
Assessment / Plan
HPI: 69 yo woman with severe right ear and facial pain. She also reported right facial rash involving right ear, right cheek, jaw, lips, tongue. She took tylenol without any pain relief. She states there is difficulty swallowing due to pain. She
stated the pain at its worse was comparable to childbirth. Dilaudid helped the pain.
In ED, her eye was stained, examined, and no lesions were found. Her right TM could not be visualized because of swelling. She has not had something like this before.
A/P:
# Herpes Zoster, severe
IV Decadron 6 mg Q8H
IV acyclovir
Analgesic mouthwash
IV pain control with Dilaudid
Liquid diet with IVF
ID consult
Contact precautions until lesions crust
Full code
VCD for DVTp
Anticipated Discharge: 24 - 48 hours
Subjective/Interval History
-
Date of Service: June 15, 2024
Objective Data
-
Labs:
Laboratory Results
06/15/24
06:45
WBC 11.5 H
Hgb 13.0
Hct 36.8 L
Plt Count 273
Sodium 135
Potassium 4.1
Chloride 97 L
Carbon Dioxide 24
BUN 16
Creatinine 1.1 H
Glucose 137 H
Calcium 8.8
Vital Signs:
Vital Signs
Temp Pulse Resp BP Pulse Ox
36.3 C 88 20 143/79 95
06/15/24 07:22 06/15/24 07:22 06/15/24 08:52 06/15/24 07:22 06/15/24 07:22
I&O
06/14/24 06/15/24 06/16/24
06:59 06:59 06:59
Intake Total 480 / 480
Balance 480 / 480
Review of Systems
-
EENT: Reports Other (severe R sided facial pain)
Physical Exam
-
General: Well Developed, Well Nourished, No Apparent Distress, Pain and Conversant; Negative Respiratory Distress
HEENT: Normocephalic, Atraumatic, Nose Appears Normal and Ears Appear Normal; Negative Oxygen
Respiratory: Non Labored Respirations; Negative Accessory Resp Muscle Use
Cardiac: Regular Rhythm and S1/S2
GI: Soft, Nontender, Nondistended and Normal Bowel Sounds
Skin: Warm and Dry
Neuro: Awake and Alert
Psych: Calm and Intact Judgement/Insight
Data Reviewed
-
CT Scan: Report Reviewed by me
Labs: Labs Reviewed by me
[2024-06-15] MEDS: FIRST-MOUTHWASH BLM SUSPENSION 5 ML PO ×3 (11:36→21:11)
[2024-06-15] MEDS: ZOFRAN 4 MG IV (11:55)
--- NOTE | 2024-06-15 12:45 | CON.ID ---
Addendum entered and electronically signed by Dotty Park MD 06/15/24 15:19:
I personally performed a history and physical exam of the patient and discussed management with the resident. I reviewed the resident's note and agree with the documented findings and plan of care HPI/CC.
69 year old female c/o worsening right ear pain since 06/09 then developed lesions chin/right face. + decreased hearing and dizziness.
Exam: significant lesions/rash on right V3 dermatome with lesions in external ear and right side of tongue.
# Severe right side herpes zoster oticus
- Not vaccinated against shingles.
- Continue IV acyclovir (d2) and steroid (d2 of 5) for now, even though presentation >72 hours from symptom onset and thus likely little benefit.
- Monitor renal function while on acyclovir.
- Contact and airborne precautions.
- Pain management.
#Acute kidney injury
- Renally dose acyclovir as needed.
# Leukocytosis - due to steroid.
#Conditions know prior to admission:
Severe C. diff colitis 10 years ago
Gastroesophageal reflux disease
Essential hypertension
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
Depression/anxiety
Irritable bowel disease
DJD
Prolonged grief reaction
Cataracts
Original Note:
Consultation
-
Date/Time Consultation Requested: 06-14-24
Date/Time Consultation Performed: 06-15-24
Requesting Provider: Dr. Nichole
Performing Provider: Dr. Park
Reason for Consultation: herpes zoster
Chief Complaint / Past History
Chief Complaint
rash and facial pain
History of Present Illness
Teri Peng, age 69, developed right-sided facial and ear pain on 06-09-24, which has continued to worsen. She came to the emergency on 06-13-24, had a neck CT which showed lymphadenopathy; she was discharged home on azithromycin (which she did
not take). Presented again to the emergency on 06-14-24 due to worsening pain. Her examination was more consistent with herpes zoster at that time and was started on IV acyclovir and dexamethasone. She has not had the shingles vaccine, and does not
recall having had chicken pox.
Past History
Past Medical History: Other (C. diff colitis, GERD, HTN, OCD, MDD, ROBYN, IBS, DJD, fibroids, prolonged grief reaction, cataracts)
Past Surgical History: Other (cholecystectomy, uterine ablation)
Allergy History:
sulfamethoxazole [From Bactrim] Allergy (Severe, Verified 06/14/24 21:08)
Anaphylaxis
trimethoprim [From Bactrim] Allergy (Severe, Verified 06/14/24 21:08)
Anaphylaxis
cephalexin [From Keflex] Allergy (Verified 06/13/24 10:41)
Cdiff
ketorolac tromethamine [From Toradol] Allergy (Verified 06/13/24 10:41)
Rash
latex Allergy (Verified 06/13/24 10:41)
Rash
oxycodone HCl [From Percocet] Allergy (Verified 06/13/24 10:41)
hallucinations
Penicillins Allergy (Verified 06/13/24 10:41)
Rash
Medications Reviewed: Yes
Social History
Tobacco: Non-Smoker
Alcohol: None
Drug: None
Personal:
Living: With Family
Family History
Family History: Not Pertinent
Review of Systems
Review of Systems
General: Negative Fever or Chills
HEENT: Lymphadenopathy and Other (ear and facial pain; muffled hearing on the right; facial and ear rash)
Cardiovascular: Negative Chest Pain or Palpitations
Respiratory: Negative Dyspnea or Cough
Genital / Urological: Negative Dysuria
Endocrine: Negative Weight Change
Musculoskeletal: Negative Joint Pain or Joint Swelling
Neurological: Headache; Negative Dizziness
Psychological: Sleep Changes (insomnia)
Vital Signs
Temp Pulse Resp BP Pulse Ox
97.4 F 88 20 143/79 95
06/15/24 07:22 06/15/24 07:22 06/15/24 08:52 06/15/24 07:22 06/15/24 07:22
Physical Exam
Physical Exam
Constitutional: No Acute Distress
Head: Normocephalic
Eyes: Pupils Equal, Pupils Round and Sclera Anicteric; Negative Erythema
Oral: Other (right-sided lesions on tongue and mucosa)
Lymph Nodes: Lymphadenopathy
Cardiovascular: Regular Rate and S1/S2
Pulmonary: Clear and Non Labored
Gastrointestinal: Soft, Non Tender and Non Distended
Extremities: Negative Edema, Clubbing or Cyanosis
Musculoskeletal: Negative Joint Swelling
Skin: Rash (erythematous, vesicular, tender rash extending from the ear to mouth, limited to the right side - along V3 dermatone)
Wound: None
Neurological: Awake, Alert, Oriented and Other (lip numbness on the right side)
Psychological: Other (anxious and tearful)
Lab / Diagnostic Study Results
06/15/24 06:45
06/15/24 06:45
Abs Immat Gran (auto) 0.1 10^3/uL (0-0.05) H 06/14/24 15:45
Absolute Neuts (auto) 5.0 10^3/uL (1.4-6.5) 06/14/24 15:45
Absolute Lymphs (auto) 1.5 10^3/uL (1.2-3.4) 06/14/24 15:45
Absolute Monos (auto) 0.8 10^3/uL (0.1-0.6) H 06/14/24 15:45
Absolute Basos (auto) 0.0 10^3/uL (0-0.2) 06/14/24 15:45
Immature Gran % 0.7 % (0-0.5) H 06/14/24 15:45
Neutrophils % 67.6 % (42.2-75.2) 06/14/24 15:45
Lymphocytes % 20.5 % (20.5-51.1) 06/14/24 15:45
Monocytes % 10.2 % (1.7-9.3) H 06/14/24 15:45
Eosinophils % 0.5 % (0-6) 06/14/24 15:45
Basophils % 0.5 % (0-2) 06/14/24 15:45
Microbiology Results
06-13-24: CT Neck: Interval increase in mild bilateral level 1 cervical lymphadenopathy (right greater than left) since the prior examination performed 01/06/2024. Diagnostic possibilities are (1) acute infectious or inflammatory lymphadenopathy
given pain in this region or (2) less likely malignant lymphadenopathy such as lymphoma. Mildly enlarged bilateral intraparotid lymph nodes. Severe discogenic degenerative disease at C5/C6 and C6/C7 with disc-osteophyte complexes causing mild spinal
cord compression and central canal stenosis at both levels.
Assessment / Plan
Herpes zoster oticus
- No known history of chicken pox and has not had the Shingles shot.
- Continue IV acyclovir and dexamethasone.
- Monitor renal function while on acyclovir.
- Contact and airborne precautions.
- Pain management.
Acute kidney injury
Conditions know prior to admisson:
C. diff colitis
Gastroesophageal reflux disease
Essential hypertension
Depression/anxiety
Irritable bowel disease
DJD
Prolonged grief reaction
Cataracts
--- NOTE | 2024-06-15 16:51 | CM ---
Patient lives alone in a multilevel home, patient is independent with adl's and uses a walker with ambulation, patient has cane and w/c. Patient's spouse about 2 years ago and patient has 2 sons who are supportive. Patient is on
isolation, and she has been ambulating with nursing in room with her walker.
Pharmacy: [facility]
PCP: Linh West
Plan; Home at discharge no needs.
[2024-06-15 23:05] VITALS: BP 116/63
[2024-06-15 23:52] VITALS: BP 116/63
[2024-06-16] MEDS: DILAUDID 1 MG IV ×5 (02:17→20:40)
[2024-06-16] MEDS: FIRST-MOUTHWASH BLM SUSPENSION 5 ML PO ×4 (02:17→20:35)
[2024-06-16] MEDS: NSS 1000 IV ×2 (05:48→16:30)
[2024-06-16 07:00] VITALS: BP 141/73
[2024-06-16 08:00] LABS: % Basophils 0.2 % (0-2); % Immature Granulocytes 0.9 % (0-0.5); % Lymphocytes 7.2 % (20.5-51.1); % Monocytes 3.7 % (1.7-9.3); Absolute Immature Granulocytes 0.1 10^3/uL (0-0.05); Absolute Lymphocytes 0.9 10^3/uL (1.2-3.4); Absolute Monocytes 0.5 10^3/uL (0.1-0.6); Absolute Neutrophils 10.9 10^3/uL (1.4-6.5); Hematocrit 34.1 % (37.0-47.0); Mean Corp Hgb Conc. 35.2 g/dL (33.0-37.0); Mean Corpuscular Hgb 31.7 pg (27.0-31.0); Mean Corpuscular Volume 90.2 fL (81.0-99.0); Mean Platelet Volume 9.5 fL (7.4-10.4); Nucleated Red Blood Cells % 0 %; Platelet Count 267 10^3/uL (130-400); Red Blood Cell Count 3.78 10^6/uL (4.20-5.40); Red Cell Dist. Width 12.8 % (11.5-14.5); White Blood Cell Count 12.3 10^3/uL (4.8-10.8)
--- NOTE | 2024-06-16 08:17 | W.PN.HOSP.TC ---
Today's Communication/Plan
-
see A/P
Assessment / Plan
Assessment / Plan
HPI: 69 yo woman with severe right ear and facial pain. She also reported right facial rash involving right ear, right cheek, jaw, lips, tongue. She took tylenol without any pain relief. She states there is difficulty swallowing due to pain. She
stated the pain at its worse was comparable to childbirth. Dilaudid helped the pain.
In ED, her eye was stained, examined, and no lesions were found. Her right TM could not be visualized because of swelling. She has not had something like this before.
A/P:
# Severe right side herpes zoster oticus
Cont IV Decadron 6 mg Q8H
Cont IV acyclovir
Analgesic mouthwash
IV pain control with Dilaudid
Cont full liquid diet with IVF
Appreciate ID input
Contact precautions until lesions crust
# GINO
SCr 1.1 from baseline 0.7
Monitor SCr
Full code
VCD for DVTp
Anticipated Discharge: 24 - 48 hours
Subjective/Interval History
-
Date of Service: June 16, 2024
Objective Data
-
Labs:
Laboratory Results
06/16/24
06:37
WBC 12.3 H
Hgb 12.0
Hct 34.1 L
Plt Count 267
Sodium Pending
Potassium Pending
Chloride Pending
Carbon Dioxide Pending
BUN Pending
Creatinine Pending
Glucose Pending
Calcium Pending
Vital Signs:
Vital Signs
Temp Pulse Resp BP Pulse Ox
36.9 C 82 24 116/63 94
06/15/24 23:05 06/15/24 23:05 06/15/24 23:05 06/15/24 23:05 06/16/24 00:01
I&O
06/15/24 06/16/24 06/17/24
06:59 06:59 06:59
Intake Total 480 / 480 3720 / 3720
Balance 480 / 480 3720 / 3720
Review of Systems
-
EENT: Reports Other (severe R sided facial pain)
Physical Exam
-
General: Well Developed, Well Nourished, No Apparent Distress, Pain (improved) and Conversant; Negative Respiratory Distress
HEENT: Normocephalic, Atraumatic, Nose Appears Normal and Ears Appear Normal; Negative Oxygen
Respiratory: Non Labored Respirations; Negative Accessory Resp Muscle Use
Cardiac: Regular Rhythm and S1/S2
GI: Soft, Nontender, Nondistended and Normal Bowel Sounds
Skin: Warm and Dry
Neuro: Awake and Alert
Psych: Calm and Intact Judgement/Insight
Data Reviewed
-
CT Scan: Report Reviewed by me
Labs: Labs Reviewed by me
[2024-06-16 08:21] LABS: Blood Urea Nitrogen 27 mg/dl (7-17); Calcium 7.9 mg/dl (8.4-10.2); Carbon Dioxide 22 mmol/L (22-30); Chloride 100 mmol/L (98-107); Estimated Creatinine Clearance 32 ml/min; Glucose 138 mg/dl (70-99); Magnesium 1.8 mg/dl (1.6-2.3); Potassium 3.8 mmol/L (3.5-5.1); Sodium 138 mmol/L (135-145); eGFR 28.06
[2024-06-16] MEDS: DESENEX/MITRAZOL/ZEASORB 1 APPLIC TOPICAL ×2 (10:15→21:21)
[2024-06-16] MEDS: MAGNESIUM OXIDE 500 MG PO (10:30)
[2024-06-16] MEDS: ORETIC 25 MG PO (10:30)
[2024-06-16] MEDS: ZESTRIL 40 MG PO (10:30)
[2024-06-16] MEDS: DECADRON 6 MG IV ×3 (10:31→23:13)
[2024-06-16] MEDS: ZOVIRAX INJECTION 265 MG IV ×2 (10:36→22:44)
[2024-06-16] MEDS: ZOFRAN 4 MG IV (10:51)
--- NOTE | 2024-06-16 11:11 | CM ---
dx Zoster
Patient continues with IV steroids and pain meds.
CM will continue to follow for d/c needs.
Plan: home no needs anticipated.
--- NOTE | 2024-06-16 12:38 | W.PN.ID1 ---
Date of Service
Date of Service: June 16, 2024
Today's Communication
See below.
Assessment / Plan
# Severe right side herpes zoster oticus
#Acute kidney injury - worse
- Unvaccinated against shingles.
- Continue IV acyclovir (d3) and steroid (d3 of 5) for now, even though presentation >72 hours from symptom onset and thus likely little benefit.
- Renally adjusted IV acyclovir from q8h to q12h.
- Tomorrow will change to valacyclovir.
- Follow renal function.
- Contact and airborne precautions.
- Continue Pain management.
- Eventual Outpatient Shingrix vaccine.
# Leukocytosis - due to steroid.
#Conditions know prior to admission:
Severe C. diff colitis 10 years ago
Gastroesophageal reflux disease
Essential hypertension
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
Depression/anxiety
Irritable bowel disease
DJD
Prolonged grief reaction
Cataracts
Chief Complaint
-: Other (shingles)
Subjective / Review of Systems
Right ear pain better controlled.
+ anxiety
Vital Signs / Physical Exam
Vital Signs
Vital Signs
Temp Pulse Resp BP Pulse Ox
98.6 F 79 18 141/73 97
06/16/24 07:00 06/16/24 07:00 06/16/24 07:00 06/16/24 07:00 06/16/24 07:00
Physical Exam
Constitutional: Non-toxic
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 right tongue lesions stable. )
Objective Data
Lab Data
Lab Results
06/16/24 06:37
06/16/24 06:37
Estimated Creat Clear 32 ml/min 06/16/24 06:37
Total Bilirubin 0.8 mg/dl (0.2-1.3) 06/14/24 15:45
AST 62 U/L (14-36) H 06/14/24 15:45
ALT 57 U/L (0-35) H 06/14/24 15:45
Alkaline Phosphatase 77 U/L (38-126) 06/14/24 15:45
Most recent labs reviewed.
06-13-24: CT Neck: Interval increase in mild bilateral level 1 cervical lymphadenopathy (right greater than left) since the prior examination performed 01/06/2024. Diagnostic possibilities are (1) acute infectious or inflammatory lymphadenopathy
given pain in this region or (2) less likely malignant lymphadenopathy such as lymphoma. Mildly enlarged bilateral intraparotid lymph nodes. Severe discogenic degenerative disease at C5/C6 and C6/C7 with disc-osteophyte complexes causing mild spinal
cord compression and central canal stenosis at both levels.
[2024-06-16 15:00] VITALS: BP 169/79
[2024-06-16] MEDS: ZOVIRAX INJECTION IV (16:18)
[2024-06-16] MEDS: NSS IV (22:40)
[2024-06-16 23:00] VITALS: BP 141/78
[2024-06-17] MEDS: DILAUDID 1 MG IV ×5 (00:34→23:41)
[2024-06-17] MEDS: FIRST-MOUTHWASH BLM SUSPENSION 5 ML PO ×5 (00:35→23:40)
--- NOTE | 2024-06-17 03:17 | DOWNTIME ---
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 Downtime documentation of patient's care, including medication administrations, has been reconciled in the electronic record per guidelines. Refer to the
patient's paper chart under the miscellaneous tab to see printed paper medication records and downtime forms.
[2024-06-17] MEDS: NSS 1000 IV ×2 (04:37→15:29)
[2024-06-17] MEDS: ZOFRAN 4 MG IV ×2 (04:38→19:22)
[2024-06-17 07:00] VITALS: BP 178/90
--- NOTE | 2024-06-17 09:00 | W.PN.HOSP.TC ---
Today's Communication/Plan
-
see A/P
Assessment / Plan
Assessment / Plan
HPI: 69 yo woman with severe right ear and facial pain. She also reported right facial rash involving right ear, right cheek, jaw, lips, tongue. She took tylenol without any pain relief. She states there is difficulty swallowing due to pain. She
stated the pain at its worse was comparable to childbirth. Dilaudid helped the pain.
In ED, her eye was stained, examined, and no lesions were found. Her right TM could not be visualized because of swelling. She has not had something like this before.
A/P:
# Severe right side herpes zoster oticus
Cont IV Decadron 6 mg Q8H
Cont IV acyclovir with plan to transition to Valtrex
Analgesic mouthwash
IV pain control with Dilaudid
Advance full liquid diet to puree
Appreciate ID input
Contact precautions until lesions crust
# GINO
SCr 1.9 from baseline 0.7
Cont IVF
Hold ACETYLENE GAS COMPRESSOR HCTZ and lisinopril
Monitor SCr
# HTN
Hold ACETYLENE GAS COMPRESSOR HCTZ and lisinopril with GINO
IV hydralazine PRN
Full code
VCD for DVTp
DW RN
Anticipated Discharge: 24 - 48 hours
Subjective/Interval History
-
Date of Service: June 17, 2024
Objective Data
-
Labs:
Laboratory Results
06/17/24
08:28
WBC Pending
Hgb Pending
Hct Pending
Plt Count Pending
Sodium Pending
Potassium Pending
Chloride Pending
Carbon Dioxide Pending
BUN Pending
Creatinine Pending
Glucose Pending
Calcium Pending
Vital Signs:
Vital Signs
Temp Pulse Resp BP Pulse Ox
36.3 C 74 24 141/78 100
06/16/24 23:00 06/16/24 23:00 06/16/24 23:00 06/16/24 23:00 06/17/24 00:48
I&O
06/16/24 06/17/24 06/18/24
06:59 06:59 06:59
Intake Total 3720 / 3720 4450 / 4450
Output Total 3710 / 3710
Balance 3720 / 3720 740 / 740
Review of Systems
-
EENT: Reports Other (severe R sided facial pain has improved )
Physical Exam
-
General: Well Developed, Well Nourished, No Apparent Distress, Pain (improved) and Conversant; Negative Respiratory Distress
HEENT: Normocephalic, Atraumatic, Nose Appears Normal and Ears Appear Normal; Negative Oxygen
Respiratory: Non Labored Respirations; Negative Accessory Resp Muscle Use
Cardiac: Regular Rhythm and S1/S2
GI: Soft, Nontender, Nondistended and Normal Bowel Sounds
Skin: Warm and Dry
Neuro: Awake and Alert
Psych: Calm and Intact Judgement/Insight
Data Reviewed
-
CT Scan: Report Reviewed by me
Labs: Labs Reviewed by me
[2024-06-17 09:02] LABS: % Basophils 0.1 % (0-2); % Immature Granulocytes 2.3 % (0-0.5); % Lymphocytes 11.6 % (20.5-51.1); Absolute Immature Granulocytes 0.2 10^3/uL (0-0.05); Absolute Lymphocytes 1.2 10^3/uL (1.2-3.4); Absolute Monocytes 0.4 10^3/uL (0.1-0.6); Absolute Neutrophils 8.2 10^3/uL (1.4-6.5); Hematocrit 34.7 % (37.0-47.0); Hemoglobin 12.1 g/dL (12.0-16.0); Mean Corp Hgb Conc. 34.9 g/dL (33.0-37.0); Mean Corpuscular Hgb 30.6 pg (27.0-31.0); Mean Corpuscular Volume 87.6 fL (81.0-99.0); Mean Platelet Volume 9.3 fL (7.4-10.4); Nucleated Red Blood Cells % 0 %; Platelet Count 277 10^3/uL (130-400); Red Blood Cell Count 3.96 10^6/uL (4.20-5.40)
[2024-06-17] MEDS: DECADRON 6 MG IV ×3 (09:46→23:40)
[2024-06-17] MEDS: MAGNESIUM OXIDE 500 MG PO (09:46)
[2024-06-17] MEDS: APRESOLINE 10 MG IV (09:47)
[2024-06-17] MEDS: DESENEX/MITRAZOL/ZEASORB 1 APPLIC TOPICAL ×2 (10:03→19:22)
[2024-06-17] MEDS: NSS IV (10:04)
[2024-06-17] MEDS: ZOVIRAX INJECTION 265 MG IV (10:21)
[2024-06-17 10:33] LABS: Blood Urea Nitrogen 28 mg/dl (7-17); Calcium 8.5 mg/dl (8.4-10.2); Carbon Dioxide 25 mmol/L (22-30); Chloride 103 mmol/L (98-107); Estimated Creatinine Clearance 40 ml/min; Glucose 139 mg/dl (70-99); Magnesium 2.3 mg/dl (1.6-2.3); Potassium 4.2 mmol/L (3.5-5.1); Sodium 138 mmol/L (135-145); eGFR 37.26
--- NOTE | 2024-06-17 11:17 | CM ---
Patient seen bedside, sitting in chair.
Patient stated she is feeling a bit better.
Patient denies home care needs, aware of CM availability should needs arise.
Continues on IV steroids and pain management.
Plan:home no needs anticipated.
--- NOTE | 2024-06-17 13:03 | PTCARENOTE ---
Patient crying in room. Patient c/o SOB from crying and patient is crying because legs are swollen. Patient 96% RN, RN explained to patient the slight edema is ok and she should ambulate in the room to help alleviate LE edema. Patient anxious and
starts crying again, patient states, 'I am so upset, because I did not want to get you (RN) in trouble, because you gave me medication for my blood pressure.' RN explained that the physician ordered PRN medication to treat high blood pressure and
patients PO BP meds were stopped. RN had this same conversation with patient this morning. MUCH emotional support given to patient. Patient is calm, breathing WNL and has stopped crying. Patient states, 'I am sorry. I think it is PTSD for when my
was in the hospital.'
[2024-06-17 15:00] VITALS: BP 151/84
--- NOTE | 2024-06-17 15:59 | W.PN.ID1 ---
Addendum entered and electronically signed by Dotty Park MD 06/17/24 16:26:
I saw and evaluated the patient. I reviewed the resident�s note and agree with findings and plan as documented in the resident�s note.
Exam: Right facial lesions continues to crust; right tongue lesions resolving
# Severe right side herpes zoster oticus
#Acute kidney injury - improving
- Unvaccinated against shingles.
- Transition IV acyclovir (d4) to valacyclovir 1g po q12 through 06/20/24; adjust dose as renal function improves.
- Continue steroid (d4 of 5)
- Contact and airborne precautions.
- Eventual Outpatient Shingrix vaccine.
# Leukocytosis - resolved
#Conditions know prior to admisson:
C. diff colitis > 10 years ago
Gastroesophageal reflux disease
Essential hypertension
Depression/anxiety
Irritable bowel disease
DJD
Prolonged grief reaction
Cataracts
Original Note:
Date of Service
Date of Service: June 17, 2024
Today's Communication
* Transition to oral valacyclovir.
Assessment / Plan
Herpes zoster oticus
- No known history of chicken pox and unvaccinated for Shingles.
- Switch IV acyclovir to oral valacyclovir (renally dosed at 1000 mg twice a day).
- Monitor renal function.
- Contact and airborne precautions.
- Pain management.
Acute kidney injury, improving
Conditions know prior to admisson:
C. diff colitis
Gastroesophageal reflux disease
Essential hypertension
Depression/anxiety
Irritable bowel disease
DJD
Prolonged grief reaction
Cataracts
Chief Complaint
-: Other (shingles)
Subjective / Review of Systems
Right ear pain better controlled.
+ anxiety
Vital Signs / Physical Exam
Vital Signs
Vital Signs
Temp Pulse Resp BP Pulse Ox
97.4 F 101 20 151/84 95
06/17/24 15:00 06/17/24 15:00 06/17/24 15:00 06/17/24 15:00 06/17/24 15:00
Physical Exam
Constitutional: Non-toxic
Head: Other (right facial lesions flat drier and crusting; right tongue lesions improved significantly)
Objective Data
Lab Data
Lab Results
06/17/24 08:28
06/17/24 08:28
Estimated Creat Clear 40 ml/min 06/17/24 08:28
Total Bilirubin 0.8 mg/dl (0.2-1.3) 06/14/24 15:45
AST 62 U/L (14-36) H 06/14/24 15:45
ALT 57 U/L (0-35) H 06/14/24 15:45
Alkaline Phosphatase 77 U/L (38-126) 06/14/24 15:45
Most recent labs reviewed.
06-13-24: CT Neck: Interval increase in mild bilateral level 1 cervical lymphadenopathy (right greater than left) since the prior examination performed 01/06/2024. Diagnostic possibilities are (1) acute infectious or inflammatory lymphadenopathy
given pain in this region or (2) less likely malignant lymphadenopathy such as lymphoma. Mildly enlarged bilateral intraparotid lymph nodes. Severe discogenic degenerative disease at C5/C6 and C6/C7 with disc-osteophyte complexes causing mild spinal
cord compression and central canal stenosis at both levels.
--- NOTE | 2024-06-17 18:11 | PTCARENOTE ---
RN in to see patient. Patient is resting in bed, son at bedside. Patient is comfortable and has no needs at this time.
[2024-06-17 19:06] VITALS: BP 169/84
[2024-06-17] MEDS: VALTREX 1000 MG PO (19:22)
[2024-06-17 23:22] VITALS: BP 145/80
[2024-06-18] MEDS: NSS 1000 IV ×2 (01:00→09:11)
[2024-06-18] MEDS: FIRST-MOUTHWASH BLM SUSPENSION 5 ML PO ×2 (05:08→08:01)
[2024-06-18] MEDS: DILAUDID 1 MG IV (05:08)
[2024-06-18] MEDS: VALTREX 1000 MG PO (07:58)
[2024-06-18] MEDS: DECADRON 6 MG IV (07:59)
[2024-06-18 08:00] VITALS: BP 153/80
[2024-06-18] MEDS: MAGNESIUM OXIDE 500 MG PO (08:01)
[2024-06-18] MEDS: DESENEX/MITRAZOL/ZEASORB 1 APPLIC TOPICAL (08:02)
[2024-06-18 08:06] LABS: Hematocrit 33.5 % (37.0-47.0); Hemoglobin 11.7 g/dL (12.0-16.0); Mean Corp Hgb Conc. 34.9 g/dL (33.0-37.0); Mean Corpuscular Hgb 31.5 pg (27.0-31.0); Mean Corpuscular Volume 90.1 fL (81.0-99.0); Mean Platelet Volume 9.5 fL (7.4-10.4); Platelet Count 234 10^3/uL (130-400); Red Blood Cell Count 3.72 10^6/uL (4.20-5.40); White Blood Cell Count 8.8 10^3/uL (4.8-10.8)
[2024-06-18 08:28] LABS: Blood Urea Nitrogen 26 mg/dl (7-17); Calcium 8.2 mg/dl (8.4-10.2); Carbon Dioxide 24 mmol/L (22-30); Chloride 104 mmol/L (98-107); Estimated Creatinine Clearance 55 ml/min; Glucose 151 mg/dl (70-99); Magnesium 2.3 mg/dl (1.6-2.3); Potassium 4.1 mmol/L (3.5-5.1); Sodium 139 mmol/L (135-145); eGFR 54.06
[2024-06-18 08:46] LABS: Absolute Neutrophils -Man Diff 7.5 10^3/uL (1.4-6.5); Atypical Lymphocytes 1 %; Band Neutrophils 2 % (0-3); Eosinophils 2 % (0-6); Lymphocytes 11 % (20-51); Monocytes 2 % (2-9); Segmented Neutrophils 84 % (42-75)
[2024-06-18 08:47] LABS: Normal RBC Morphology Yes; Platelets Checked Yes; Total Cells Counted 100
--- NOTE | 2024-06-18 09:10 | W.PN.HOSP.TC ---
Addendum entered and electronically signed by Iva Da Silva MD 06/18/24 13:37:
total DC time 36 min
Original Note:
Today's Communication/Plan
-
see A/P
Assessment / Plan
Assessment / Plan
HPI: 69 yo woman with severe right ear and facial pain. She also reported right facial rash involving right ear, right cheek, jaw, lips, tongue. She took tylenol without any pain relief. She states there is difficulty swallowing due to pain. She
stated the pain at its worse was comparable to childbirth. Dilaudid helped the pain.
In ED, her eye was stained, examined, and no lesions were found. Her right TM could not be visualized because of swelling. She has not had something like this before.
A/P:
# Severe right side herpes zoster oticus
IV Decadron 6 mg Q8H would be stopped at the time of discharge
IV acyclovir -> PO valacyclovir 1g po q12 through 06/20/24
Analgesic mouthwash
pain control with Dilaudid, to be changed to PO Dilaudid upon discharge
Advance diet to solid
Appreciate ID input
Contact precautions until lesions crust
# GINO
SCr 1.9 to 1.1 today, from baseline 0.7
Can cap IVF
Hold MANUFACTURING ACCOUNTANT HCTZ and lisinopril until further directed by PCP
Monitor SCr
# HTN
Hold MANUFACTURING ACCOUNTANT HCTZ and lisinopril with GINO
IV hydralazine PRN
Can DC on PO hydralazine while off HCTZ and lisinopril
Full code
VCD for DVTp
DW RN
DW ID
Anticipated Discharge: Today
Subjective/Interval History
-
Date of Service: June 18, 2024
Objective Data
-
Labs:
Laboratory Results
06/18/24
07:01
WBC 8.8
Hgb 11.7 L
Hct 33.5 L
Plt Count 234
Sodium 139
Potassium 4.1
Chloride 104
Carbon Dioxide 24
BUN 26 H
Creatinine 1.1 H
Glucose 151 H
Calcium 8.2 L
Vital Signs:
Vital Signs
Temp Pulse Resp BP Pulse Ox
36.2 C 85 18 153/80 94
06/18/24 08:00 06/18/24 08:00 06/18/24 08:00 06/18/24 08:00 06/18/24 08:00
I&O
06/17/24 06/18/24 06/19/24
06:59 06:59 06:59
Intake Total 4450 / 4450 3190 / 3190
Output Total 3710 / 3710 2975 / 2975
Balance 740 / 740 215 / 215
--- NOTE | 2024-06-18 10:43 | CM ---
Patient seen bedside.
IMM completed.
Plan: home no needs.
[2024-06-18 11:45] VITALS: BP 143/85
--- NOTE | 2024-06-18 11:49 | W.PN.ID1 ---
Addendum entered and electronically signed by Dotty Park MD 06/18/24 12:22:
I saw and evaluated the patient. I reviewed the resident�s note and agree with findings and plan as documented in the resident�s note.
# Right side herpes zoster oticus - improving
#Acute kidney injury - resolving
- Unvaccinated against shingles.
- Renally adjust valacyclovir to 1g po q8h, complete through 06/20/24.
- Can dc steroid (d5 of 5)
- Eventual outpatient Shingrix vaccine.
D/W Dr. Da Silva
#Conditions know prior to admisson:
C. diff colitis > 10 years ago
Gastroesophageal reflux disease
Essential hypertension
Depression/anxiety
Irritable bowel disease
DJD
Prolonged grief reaction
Cataracts
Original Note:
Date of Service
Date of Service: June 18, 2024
Today's Communication
* Discharge today; valacyclovir through 06-20-24.
Assessment / Plan
Herpes zoster oticus
- No known history of chicken pox and unvaccinated for Shingles.
- Continue oral valacyclovir through 06-20-24.
- Monitor renal function.
- Contact and airborne precautions.
- Pain management.
Acute kidney injury, improving
Conditions know prior to admisson:
C. diff colitis
Gastroesophageal reflux disease
Essential hypertension
Depression/anxiety
Irritable bowel disease
DJD
Prolonged grief reaction
Cataracts
Chief Complaint
-: Other (shingles)
Subjective / Review of Systems
Right ear pain better controlled.
+ anxiety
Vital Signs / Physical Exam
Vital Signs
Vital Signs
Temp Pulse Resp BP Pulse Ox
97.2 F 85 18 153/80 95
06/18/24 08:00 06/18/24 08:00 06/18/24 08:00 06/18/24 08:00 06/18/24 08:00
Physical Exam
Constitutional: Non-toxic
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
Objective Data
Lab Data
Lab Results
06/18/24 07:01
06/18/24 07:01
Estimated Creat Clear 55 ml/min 06/18/24 07:01
Total Bilirubin 0.8 mg/dl (0.2-1.3) 06/14/24 15:45
AST 62 U/L (14-36) H 06/14/24 15:45
ALT 57 U/L (0-35) H 06/14/24 15:45
Alkaline Phosphatase 77 U/L (38-126) 06/14/24 15:45
Most recent labs reviewed.
06-13-24: CT Neck: Interval increase in mild bilateral level 1 cervical lymphadenopathy (right greater than left) since the prior examination performed 01/06/2024. Diagnostic possibilities are (1) acute infectious or inflammatory lymphadenopathy
given pain in this region or (2) less likely malignant lymphadenopathy such as lymphoma. Mildly enlarged bilateral intraparotid lymph nodes. Severe discogenic degenerative disease at C5/C6 and C6/C7 with disc-osteophyte complexes causing mild spinal
cord compression and central canal stenosis at both levels.
--- NOTE | 2024-06-18 13:13 | W.DCSUMMARY ---
Discharge Summary
Discharge Data
Date of Admission: 06/14/24
Date of Discharge: 06/18/24
-
Pending Results: No
Hospital Course
Principal Diagnosis:
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
Acute kidney injury (GINO)
Chronic Diagnoses:�
Hypertension
Consultations:�
Infectious disease
Procedures:�
None
Clinical course:�
This is a 69-year-old female, with past medical history as stated above, who presented with severe right ear and facial pain.
Problem 1:
Severe right sided herpes zoster oticus/Gil Ramires syndrome.
She received IV acyclovir while in the hospital, and this was changed to oral valacyclovir 1g po q12 through 06/20/24.
The patient also received IV Decadron during her hospital stay for anti-inflammatory effect, and this was not continued after discharge.
She received IV Dilaudid for pain control while in the hospital, and p.o. Dilaudid 7 tablets was prescribed for pain control after discharge.
Problem 2:
GINO, treated with IV fluid, and improved.
Her serum creatinine was as high as 1.9, which trended down to 1.1 on the day of discharge. Her baseline serum creatinine was at 0.7.
Due to her GINO, her prior to admission hydrochlorothiazide and lisinopril were held.
She has been informed to follow-up BMP outpatient with her PCP, and if her GINO has resolved, she can resume her prior to admission hydrochlorothiazide and lisinopril.
Problem 3:
HTN.
Her prior to admission HCTZ and lisinopril were held due to GINO.
Hydralazine was added (while off HCTZ and lisinopril) and she can continue 25 mg 3 times daily for the time being for BP control.
As for the rest of her medical problems, they were stable during her hospital stay.
Discharge Plan
-
Patient Disposition: Home (Routine Discharge)
Discharge Diagnosis/Procedures: Severe right side herpes zoster oticus;
improved acute kidney injury (Cr 1.9 to 1.1, baseline 0.7)
Condition: Fair
Diet: As tolerated
Activity: As tolerated
Driving Restrictions: As prior to admission
Blood Work: BMP in 1 week, result to PCP
Referrals:
Linh Lopez CRNP [Family Provider] - in less than 1 week
Additional Discharge Medication Instructions: Hold HCTZ and lisinopril until further directed by your PCP (until your kidney function returns to baseline),
you can use hydralazine for blood pressure control while off HCTZ and lisinopril
Prescriptions:
New
valacyclovir [Valtrex] 1 gram tablet
1,000 mg PO Q12H 3 Days Qty: 6 0RF
hydromorphone [Dilaudid] 2 mg tablet
2 mg PO Q6H PRN (Reason: Pain) Qty: 7 0RF
hydralazine 25 mg tablet
25 mg PO TID Qty: 30 0RF
Continued
cyanocobalamin (vitamin B-12) 1,000 mcg Tablet
1,000 mcg PO DAILY
therapeutic multivitamin Tablet
1 tab PO DAILY
zinc sulfate 50 mg zinc (220 mg) Tablet
50 mg PO DAILY
ascorbic acid (vitamin C) [Vitamin C] 500 mg Tablet
500 mg PO DAILY
cholecalciferol (vitamin D3) [Vitamin D3] 25 mcg (1,000 unit) Tablet
25 mcg PO DAILY
Visbiome 112.5 billion cell Capsule
1 cap PO DAILY
magnesium oxide 400 mg magnesium Tablet
400 mg PO DAILY
Held
hydrochlorothiazide 25 mg Tablet
25 mg PO DAILY
Hold Instructions: Resume on 06/24/24.
lisinopril 40 mg Tablet
40 mg PO DAILY
Hold Instructions: Resume on 06/24/24.
Discharge Orders:
Discharge Patient (As Directed); Ordered 06/18/24
Ordered By: Iva Da Silva
Discharge Date and Time
Discharge Date/Time: 06/18/24 12:33
Print Language: ALBANIAN
== END 2024-06-18 12:33 | disposition home or self-care (01) | DRG 74 ==
LOC: 4 WEST ACU 19:38
PROVIDERS: Nurse Practitioner; ADMITTING PHYSICIAN Internal Medicine; ATTENDING PHYSICIAN Internal Medicine; EMERGENCY PHYSICIAN Emergency Medicine; FAMILY PHYSICIAN Nurse Practitioner Adult Health; OTHER PHYSICIAN Internal Medicine Infectious Disease
DX: B02.21 Postherpetic geniculate ganglionitis (principal); N17.9 Acute kidney failure, unspecified; I10 Essential (primary) hypertension; K21.9 Gastro-esophageal reflux disease without esophagitis; F42.9 Obsessive-compulsive disorder, unspecified; F41.0 Panic disorder [episodic paroxysmal anxiety]; F32.9 Major depressive disorder, single episode, unspecified; D72.828 Other elevated white blood cell count; T38.0X5A Adverse effect of glucocorticoids and synthetic analogues, initial encounter; K58.9 Irritable bowel syndrome, unspecified; M19.90 Unspecified osteoarthritis, unspecified site; F43.81 Prolonged grief disorder; Z79.899 Other long term (current) drug therapy; Z88.1 Allergy status to other antibiotic agents; Z88.5 Allergy status to narcotic agent; Z88.0 Allergy status to penicillin; Z88.2 Allergy status to sulfonamides
CPT/HCPCS: 80048; 80053; 83735; 85025; 85027; 96361; 96365; 96375; 96376; 99285

== ENCOUNTER 2024-11-26 15:39 | Inpatient (IN) | payer MEDICARE, SELFPAY ==
[2024-11-26] VITALS (16 sets, daily range): BP systolic 118–169; BP diastolic 69–104; BMI 41.1; BMI 39.4
[2024-11-26 11:01] LABS: % Basophils 0.3 % (0-2); % Eosinophils 1.2 % (0-6); % Lymphocytes 22.6 % (20.5-51.1); % Monocytes 10.5 % (1.7-9.3); % Neutrophils 64.4 % (42.2-75.2); Absolute Eosinophils 0.1 10^3/uL (0-0.7); Absolute Immature Granulocytes 0.1 10^3/uL (0-0.05); Absolute Lymphocytes 1.6 10^3/uL (1.2-3.4); Absolute Monocytes 0.7 10^3/uL (0.1-0.6); Absolute Neutrophils 4.5 10^3/uL (1.4-6.5); Hematocrit 39.5 % (37.0-47.0); Hemoglobin 13.5 g/dL (12.0-16.0); Mean Corp Hgb Conc. 34.2 g/dL (33.0-37.0); Mean Corpuscular Hgb 30.2 pg (27.0-31.0); Mean Corpuscular Volume 88.4 fL (81.0-99.0); Mean Platelet Volume 8.8 fL (7.4-10.4); Nucleated Red Blood Cells % 0 %; Platelet Count 306 10^3/uL (130-400); Red Blood Cell Count 4.47 10^6/uL (4.20-5.40); Red Cell Dist. Width 12.4 % (11.5-14.5); White Blood Cell Count 6.9 10^3/uL (4.8-10.8)
[2024-11-26 11:14] LABS: ALT (SGPT) 37 U/L (0-35); AST (SGOT) 34 U/L (14-36); Albumin 4.5 g/dl (3.5-5.0); Alkaline Phosphatase 100 U/L (38-126); Blood Urea Nitrogen 10 mg/dl (7-17); Calcium 9.9 mg/dl (8.4-10.2); Carbon Dioxide 26 mmol/L (22-30); Chloride 92 mmol/L (98-107); Estimated Creatinine Clearance 101 ml/min; Glucose 123 mg/dl (70-99); Magnesium 1.8 mg/dl (1.6-2.3); Potassium 3.9 mmol/L (3.5-5.1); Sodium 130 mmol/L (135-145); Total Bilirubin 0.5 mg/dl (0.2-1.3); Total Protein 7.3 g/dl (6.3-8.2); eGFR > 60.00
[2024-11-26] MEDS: CORDARONE 103 MG IV (11:14)
[2024-11-26 11:24] LABS: Troponin I < 0.012 ng/ml
[2024-11-26] MEDS: CORDARONE 518 MG IV (11:30)
[2024-11-26 11:43] LABS: TSH 2.59 uIU/ml (0.47-4.68)
[2024-11-26] MEDS: NSS 500 IV (11:53)
--- NOTE | 2024-11-26 13:07 | ED.GENMED ---
History of Present Illness
General
Chief Complaint: Fainting/Passed Out
Source: patient, family and ambulance crew
Time Seen by Provider: 11/26/24 10:42
History of Present Illness
History of Present Illness:
69-year-old female presents with EMS. The patient states for last few days she has had pain in her arms as well as pain in her legs as well as a headache. She is felt weak and lethargic. EMS had her on the monitor and upon arrival to the
emergency department she syncopized and they noted ventricular tachycardia on the monitor. VT resolved without intervention. Patient on my evaluation is hyperventilating and crying 'I do not feel good'. She denies chest pain. No recent fevers.
Is on hydrochlorothiazide. Also on hydralazine. No history of arrhythmia.
Past History
Past History
ED Past Medical History: GERD, HTN, Psychiatric (Anxiety, Depression, OCD, Panic disorder), Other (DJD, C. difficile, uterine fibroids, Back pain, IBS) and Other (C. difficile colitis)
ED Past Surgical History: Cholecystectomy, Gynecological (Uterine ablation) and Other (cataracts)
Social History
Tobacco: Non-smoker
Alcohol: None
Personal:
Living: with family
Phy Exam
Physical Exam
Physical Exam:
CONSTITUTIONAL Patient alert and oriented to person, place and time. Very anxious appearing. Vital signs reviewed.
HEAD atraumatic, normocephalic.
EYES eyelids normal to inspection, Extraocular muscles intact, Conjunctiva normal, Sclera normal.
NECK normal range of motion, Trachea midline, no jugular venous distention.
RESPIRATORY CHEST No respiratory distress noted, Chest expansion equal, Bilateral breath sounds clear.
CARDIOVASCULAR regular rate and rhythm, Heart sounds normal.
ABDOMEN abdomen nontender, Bowel sounds normal. No distention.
BACK normal inspection, no obvious deformities
UPPER EXTREMITY range of motion normal, Motor strength normal, no cyanosis, no edema.
LOWER EXTREMITY range of motion normal, Motor strength normal, no cyanosis, no edema.
NEURO Speech normal, No focal motor deficits, Mireya coma scale 15, Memory normal, Cranial Nerves intact to screening exam.
SKIN skin warm, dry, and normal in color.
Course
Orders/Labs/Results
Orders:
Orders
11/26/24
Electrocardiogram (*1) Stat
Reason for Study: Chest Pain
Comment: DONE
Electrocardiogram (*1) Stat
Comment: DONE EMR
11/26/24 10:47
Cardiac Monitoring- Treatment ONCE
CR Chest Portable - 1 View Urgent
Comment:
Reason For Exam: syncope, weakness, arm pain
Reason Study Needs to be Portable: Patient Unstable
11/26/24 10:53
Complete Blood Count/With Diff Urgent
Comprehensive Metabolic Panel Urgent
Magnesium Urgent
TSH Urgent
Troponin I Urgent
Vitamin B12 Urgent
Comment: ADD ON
Vitamin D, 25-Oh Urgent
11/26/24 11:03
Amiodarone [Cordarone] 150 mg Dextrose 5%/Water 100 ml [D5w] 100 ml IV NOW
11/26/24 11:06
Amiodarone [Cordarone] 150 mg .ROUTE .ST-MED ONE
11/26/24 11:15
Amiodarone [Cordarone] 900 mg DEXTROSE 5% PVC-free BAG [D5W PVC-free BAG] 500 ml IV PER PROTOCOL
Initial Dose in mg/min:: 1
Duration of initial dose (hours):: 6
Subsequent dose in mg/min:: 0.5
Duration of subsequent dose (hours):: 18
Maximum dose in mg/min:: 1
Hold and notify provider if:: Heart rate < 60 BPM or SBP < 90 mmHg or MAP < 60 mmHg
11/26/24 11:49
0.9% Sodium Chloride 500 ml [Nss] 500 ml IV BOLUS
11/26/24 13:08
CT Head W/o Iv Contrast Urgent
Comment:
Reason For Exam: RUST
11/26/24 13:12
COVID-19 Antigen Urgent
Source: Nasal Swab
Influenza A+B Rapid Molecular Urgent
GLORIA Source: Nasal Swab
Specimen Description:
11/26/24 15:05
Add On- LAB Urgent
Tests Added?: b12 , mag, vit d
11/26/24 15:10
Admit/Transfer Patient As Directed
Co-Sign Provider:
Level of Care: Inpatient admission
Assign to:: IVU
Physician / Group: janene lopez
Diagnosis: Vtach , viral illness bodyaches headache
Reason for Hospitalization: Vtach , viral illness bodyaches headache
Expected length of stay greater than two midnights?: Yes
ELOS- Estimated Length of Stay in days: 3
I certify the patient meets the requirements for IP care: Yes
Code Status As Directed
Resuscitation Status: Full Code
11/26/24 15:14
PRN Pain Medication Management As Directed
May give lesser potent ordered pain med per pt: Yes
preference::
Protocol:: Medication orders for pain may be administered in a
manner that supports deferring to patient preference
when the pt is:
- Requesting an ordered lesser potent pain medication.
Least to most potent pain medications are defined
as: acetaminophen < NSAID < tramadol < opioids
(morphine, oxycodone, hydromorphone).
- Requesting a lesser dose of the same medication IF
ORDERED.
- Requesting a less intrusive route of administration
if both routes are prescribed by the provider (PO <
IV).
11/26/24 15:16
Echo 2D MMode Color/Doppler Routine
Reason for Study: polymorphic VT, syncope
11/26/24 15:17
CARDIOLOGY CONSULT Routine
Consulting Provider: Jennifer Allen
Was physician already notified: Yes
Reason for consult: v tach
11/26/24 15:30
Aspirin Chewable [Low Strength Aspirin] 324 mg PO NOW STA
11/27/24 08:00
Aspirin Chewable [Low Strength Aspirin] 81 mg PO DAILY
Abnormal Lab Results
11/26/24
10:53
Abs Immat Gran (auto) 0.1 H 10^3/uL
(0-0.05)
Absolute Monos (auto) 0.7 H 10^3/uL
(0.1-0.6)
Immature Gran % 1.0 H %
(0-0.5)
Monocytes % 10.5 H %
(1.7-9.3)
Sodium 130 L mmol/L
(135-145)
Chloride 92 L mmol/L
(98-107)
Glucose 123 H mg/dl
(70-99)
ALT 37 H U/L
(0-35)
11/26/24 10:53
11/26/24 10:53
Vital Signs
Initial and Last Documented VS:
Initial Vital Signs
Pulse Resp Pulse Ox
88 28 96
11/26/24 10:44 11/26/24 10:44 11/26/24 10:44
Last Documented Vital Signs
Temp Pulse Resp BP Pulse Ox
98.9 F 79 21 149/79 97
11/26/24 10:46 11/26/24 14:45 11/26/24 14:45 11/26/24 14:30 11/26/24 12:15
MDM/Problems Addressed
MDM/Problems Addressed:
Ventricular tachycardia, syncope, body aches, headache
*Pulse Oximetry
Patient hypoxic: no
*EKG
Interpreted by ED Provider?: Yes
Interpretation: abnormal
Rate: normal
Rhythm: sinus
QRS Pattern: left bundle branch block
Ischemia: no ischemia
*Salesperson Wigs Interpretation
Rate: normal
Interpretation: normal
Rhythm: sinus
*Critical Care Note
Total Time (30-74mins, 75-104mins- exclusive of procedures): 30 minutes
Data Reviewed
Source: patient and family (Son adds that she has been taking hydralazine.)
Prescriptions/Medications Considered But Not Given:
Considered heparin but no chest pain. Troponin negative
Patient Management
Discussion with other providers: Hospitalist and Tin Worker (Case discussed with cardiology)
Escalation/DeEscalation of care consider admission/obs:
69-year-old female who presents with a variety of complaints. Very anxious on history taking. Unclear how her symptoms are related to an episode of ventricular tachycardia by EMS. No further events. Now on amiodarone. Unclear etiology of the
VT. Does have a left bundle branch block. Cardiology to evaluate. Admit
ED Attending Note
-
Portions of this chart may have been created with voice recognition software.� Occasional wrong word or��sound alike� substitutions may have occurred due to the inherent limitations of voice recognition software.
Discharge Plan
Departure
Patient Disposition: Admit
Date of Disposition: 11/26/24
Time of Disposition: 13:08
Admit to: Telemetry
Presentation/result/management discussed w/ accepting MD/DO: Hospitalist
Discharge Problem:
Ventricular tachycardia, Syncope
Interventions
Interventions:
*Risk Screen - Suicide Last Done: 11/26/24 11:00
*Neglect/Abuse Screening Last Done: 11/26/24 11:00
ED- Fall Risk Assessment Last Done: 11/26/24 11:00
*ED COVID-19 Vaccine History Last Done: 11/26/24 10:59
ED- Cardiac Assessment Last Done: 11/26/24 11:00
ED- Neurological Assessment Last Done: 11/26/24 11:00
[2024-11-26 13:48] LABS: COVID-19 Antigen Negative (Negative)
--- NOTE | 2024-11-26 13:54 | HPS.HSE ---
Family Physician
-
Family Physician: JAVI Gardiner
Chief Complaint
-
Syncope, V. tach, body aches
History of Present Illness
69-year-old female complaining feeling weak and lethargic along with pain in her arms , bilateral hands and bilateral legs as well as headache over the past week. Her son Grey is at bedside who states he believes she has been having bodyaches and
her upper arms, shoulders, hands and bilateral legs for several months however patient states they became worse over the past week. She reports her hands feel tight when she moves them with painful tingling and chronic left shoulder pain. She
states she has history of migraines which have gotten less frequent however the past week she has had daily headaches for which she is taking Tylenol. While she was at home she felt the sensation of going to pass out so her son Grey called EMS.
During EMS transportation to the hospital she had episode of V. tach on the monitor that resolved. The patient reports she had sternal rub performed by EMS.
She was placed on amiodarone cardiology was made aware by emergency room. She denies recent URI, fever, chills, sore throat, chest pain, palpitations, cough, shortness of breath, abdominal pain, nausea, vomiting, diarrhea, urinary symptoms. She
is currently only taking hydralazine 25 3 times daily, HCTZ, occasional ibuprofen and Tylenol. She reports she takes some vitamin D, B12 Mag-Ox 1-2 times a week she used to take daily but has been forgetting.
Past medical history venous insufficiency bilateral legs, Chronic +1 bilateral legs with venous stasis dermatitis history venous insufficiencyDVT right ankle 2012 post fracture states had negative hematological workup after Coumadin, GERD, HTN,
anxiety, depression, OCD, panic disorder, vitamin B12 deficiency, vitamin D deficiency, hypomagnesemia DJD, C. difficile colitis, uterine fibroids, uterine ablation chronic back pain, spondylolisthesis cervical, lumbar spine history of epidurals,
IBS, class III obesity
Medical History
Past Medical History
Past Medical History: Reports Other
Additional Past Medical History:
GERD
essential HTN
Anxiety
Depression
OCD
Panic disorder
DJD -cervical, lumbar
spondylolisthesis cervical, lumbar spine
Back pain status post multiple lumbar epidurals
uterine fibroids, uterine ablation
IBS
C. difficile colitis
Venous insufficiency bilateral legs
Chronic +1 bilateral legs with venous stasis dermatitis history venous insufficiency
DVT right ankle 2012 post fracture states (provoked )had negative hematological workup after Coumadin
vitamin B12 deficiency
vitamin D deficiency
hypomagnesemia
Class III obesity
Past Surgical History: Reports Other
Additional Past Surgical History:
Cholecystectomy
Uterine ablation
cataracts
Multiple lumbar epidurals
Social History
Tobacco: Non-smoker
Alcohol: None
Drug: None
Personal:
Living: With Family
Family History
Family History: Not pertinent and Other (Father history of permanent pacemaker late 60s, venous insufficiency, 1 brother CVA age 67 history HTN, GSW age 26, mother age 89 from COVID history of rheumatic fever)
Allergies / Home Medications
Allergies reflects when Allergies were last updated in [employer].
Home Medications with original date entered in [employer]
Allergy/Medication List:
Allergies
Allergy/AdvReac Type Severity Reaction Status Date / Time
sulfamethoxazole Allergy Severe Anaphylaxis Verified 06/14/24 21:08
[From Bactrim]
trimethoprim [From Bactrim] Allergy Severe Anaphylaxis Verified 06/14/24 21:08
cephalexin [From Keflex] Allergy Cdiff Verified 06/13/24 10:41
ketorolac tromethamine Allergy Rash Verified 06/13/24 10:41
[From Toradol]
latex Allergy Rash Verified 06/13/24 10:41
oxycodone HCl [From Percocet] Allergy hallucinati Verified 06/13/24 10:41
ons
Penicillins Allergy Rash Verified 06/13/24 10:41
Home Medications
hydralazine 25 mg tablet 25 mg PO TID #30 tabs 06/18/24
hydrochlorothiazide 25 mg tablet 25 mg PO DAILY 11/26/24
ibuprofen 400 mg tablet 400 mg PO Q6HPRN PRN mild pain 11/26/24
Review of Systems
-
History Source: Patient and Family (Son Grey rizo)
A 12 point ROS was completed and negative except as noted: Yes
Constitutional: Reports Other (aches to bilateral upper arms, shoulders, hands); Denies Fever, Fatigue or Chills
EENT: Denies Sore Throat or Runny Nose
Respiratory: Denies Cough or Trouble Breathing
Cardiac: Reports Syncope (With episode VT); Denies Chest Pain, Diaphoresis or Palpitations
Abdomen/GI: Denies Abdominal Pain, Nausea, Vomiting, Diarrhea, Constipated, Bloody Stools or Black Stools
: Denies Dysuria, Frequency, Flank Pain, Incontinence, Difficulty Voiding or Urgency
Musculoskeletal: Reports Joint Pain (Bilateral shoulders, bilateral hands) and Edema (Chronic +1 bilateral legs with venous stasis dermatitis history venous insufficiency)
Skin: Denies Itching or Rash
Neurological: Reports Headache and Other (Chronic painful tingling to bilateral hands fingers); Denies Dizzy or Weakness
Endocrine: Reports No Symptoms
Hematologic/Lymphatic: Reports No Symptoms
Psych: Reports Calm
Physical Exam
Vital Signs
Vital Signs
Temp Pulse Resp BP Pulse Ox
98.9 F 85 21 118/81 98
11/26/24 10:46 11/26/24 12:00 11/26/24 12:00 11/26/24 12:00 11/26/24 12:00
Physical Exam
General: Comfortable, Conversant, Pain (Bilateral upper arms, left shoulder, bilateral hands) and Obese; No Fever or Chills
HEENT: NormoCephalic, Anicteric, PERRLA, [place] Conjunctivae and No Ptosis
Respiratory: Clear; No Wheezes, Rales or Rhonchi
Cardiac: S1/S2, Regular Rhythm and Peripheral Edema (+1 bilateral legs with chronic venous stasis dermatitis, history of chronic venous insufficiency); No Murmur, Rub, Gallop or JVD
GI: Soft, Non Tender, Non Distended, Normal Bowel Sounds and No Hepatosplenomegaly
Rectal: Deferred by Provider
Genito-urinary: Deferred by me
Musculoskeletal: No Clubbing, No Cyanosis, Edema, Left Lower Extremity (+1 bilateral legs with chronic venous stasis dermatitis, history of chronic venous insufficiency) and Edema, Right Lower Extremity (+1 bilateral legs with chronic venous stasis
dermatitis, history of chronic venous insufficiency); No Edema, Left Upper Extremity or Edema, Right Upper Extremity
Skin: Warm and Dry; No Rash
Neuro: AO x 3, No Motor Deficits, Nonfocal/grossly intact, Cranial Nerves Intact and No Sensory Deficits; No Slurred Speech, Facial Droop, Tremors or Sedated
Psych: Calm
Laboratory Results
-
11/26/24 10:53
11/26/24 10:53
Laboratory Results
Total Bilirubin 0.5 mg/dl (0.2-1.3) 11/26/24 10:53
AST 34 U/L (14-36) 11/26/24 10:53
ALT 37 U/L (0-35) H 11/26/24 10:53
Alkaline Phosphatase 100 U/L (38-126) 11/26/24 10:53
Troponin I < 0.012 ng/ml 11/26/24 10:53
Data Reviewed
-
Lab Data: Labs Reviewed by me
Impression/Plan
-
Impression/plan:
Admit to IVU
# Acute syncope secondary to V. tach
Syncope in ER with episode of V. tach witnessed
-IV amiodarone bolus with drip
-IV NSS 1 L
-Consult [facility] cardiology
-TSH normal 2.59
-2D echo
CT head: No acute intracranial abnormality
EKG: NSR 74 bpm, L BBB, QTc 490ms, otherwise normal
#Prolonged QTc 490 MS
-Hold prolonging QTc agents monitor on telemetry
#Acute viral illness with bodyaches, headache
Symptoms x 2 to 3 days
-COVID, influenza negative
-Tylenol as needed
CXR: No acute cardiopulmonary process
#Hyponatremia�mild
NA 130 given 1 L IV NSS in ER
-Follow BMP
#GERD hx
-No reported meds
#Essential HTN
-HOLD hydralazine 25 mg 3 times daily
-Hold HCTZ 25 mg daily
#Anxiety
#Depression
#OCD
#Panic disorder
#Venous insufficiency bilateral legs
#DVT right ankle 2013 post right ankle fracture fracture -provoked
-states had negative hematological workup after Coumadin
#Vitamin B12 deficiency
-Check B12
-Patient takes 1-2 times a week not reliable
vitamin D deficiency
-Check vitamin D
Patient takes 1-2 times a week not reliable
# Hypomagnesemia
Check magnesium
Patient takes 1-2 times a week not reliable
Class III obesity�BMI 41
Affects all aspects of care
Weight loss recommended
Other PMH:
DJD -cervical, lumbar
spondylolisthesis cervical, lumbar spine
Back pain status post multiple lumbar epidurals
C. difficile colitis
uterine fibroids status post ablation
IBS
DVT prophylaxis
Subcu Lovenox
Full code
--- NOTE | 2024-11-26 14:21 | CON.CAR ---
Addendum entered and electronically signed by Wilver Lopez MD 11/26/24 15:59:
Patient seen and examined
Agree with APARNA Ryder's note and assessment
agree with APARNA Ryder's plan
Reviewed tracing of ventricular fibrillation which was detailed by EMS
Patient extremely tearful throughout the visit.
She does admit to crying almost daily for the last 3 years after the of her �it is his birthday today
She has a chronic left bundle branch block present on 2022 ECG as well as today with a stable QTc interval of 490 ms with a left bundle branch. Electrolytes are reasonably replete.
The arm symptoms have been present over the last 1 to 2 months. She does admit to some mild dyspnea exertion for 2 to 4 weeks.
She has untreated depression which may be major.
Exam:
BMI noted
H&T normocephalic atraumatic
JVP 6
Cor regular no murmur
Lungs clear to auscultation bilaterally
Abdomen soft nontender positive bowel sounds
Trace extremity edema
Alert and x 3
Tearful during visit
Impression:
Presented with bilateral arm pain, headache currently pain-free
Syncope
Polymorphic VT-reason for syncope
HTN
GERD
Anxiety/depression
OCD
Panic disorder
DJD
IBS
DVT 2012 in setting of ankle fracture
Venous insufficiency
Echo 11/26/2024: Study pending
Plan:
-Witnessed syncope due to polymorphic VT
-Continue IV amiodarone, started in ER. Only rare PVCs noted.
-ECG reviewed. SR with LBBB, QTc 490ms. LBBB noted on prior ECG 10/2022.
-Check echo today to assess ejection fraction, assess for wall motion abnormality, and assess valvular function.
-K 3.9 with mag 1.8. Continue to follow. Please keep K >4, mag >2. Given IVFs in ER.
-TSH wnl.
-Initial troponin >0.012. Continue to trend.
-Pending trop trend and echo results, will plan for LHC in AM. Keep NPO after midnight.
-Ordered asprin 324mg to be given in ER. Will continue aspirin 81mg daily.
-Unless we find flow-limiting coronary artery disease would proceed then to ICD implantation. She does have a left bundle branch block and could consider FUNNEL COATER-D implant depending upon ejection fraction by echo. Next steps include the echo and left
heart catheterization to ultimately guide type of ICD implanted. Outpatient cardiac MRI could be considered 6-8 weeks after implantation
-Head CT with no acute intracranial abnormality.
Original Note:
Consultation
Consultation Request
Date/Time Consultation Requested: 11/26/2024
Date/Time Consultation Performed: 11/26/2024
Requesting Provider: Dr. Melgoza
Performing Provider: Charisse Ryder PA-C for Dr. Lopez
Reason for Consultation: Syncope, polymorphic VT
Medical History
-
History of Present Illness:
HPI: Teri is a 69 year old female with PMH of hypertension, GERD, anxiety/depression, OCD, DJD, and IBS who presented to [facility] for evaluation of arm and leg pain with headache over the past few days. EMS was called as patient started to feel poorly
like she was going to pass out at home, but reportedly did not have syncopal episode at home. While en route to ER, she had syncopal episode noted w/ EMS which was associated w/ polymorphic VT on telemetry. Resolved spontaneously after sternal rub
and patient has had no further episodes of syncope or VT noted while in ER. Started on amio gtt and remains stable. QTc 490 ms on initial ECG, remains in SR. She notes no chest pain. Workup in ER has revealed stable thyroid function. K 3.9 with mag
1.8. CXR without active disease. Flu and covid testing negative. Head CT with no acute intracranial abnormality. Initial troponin negative. Reports no prior cardiac history and she has never been seen by a cloth beamer in the past. Denies any chest
pain, palpitations, dizziness, lightheadedness, SOB, or LE edema currently. Patient notes she does have history of syncope since she was a child, typically with position change. She notes she has been taking her time with position changes and has
had no recent episodes of syncope within the past few years.
PMH:
HTN
GERD
Anxiety/depression
OCD
Panic disorder
DJD
IBS
DVT 2012
Venous insufficiency
Past Medical History
Past Medical History: Other (In HPI)
Past Surgical History: Cholecystectomy and Other (uterine ablation, cataract surgery)
Social History
Tobacco: Non-Smoker
Alcohol: None
Drug: None
Personal:
Living: With Family
Family History
Family History: Other (Father had PPM implant)
Allergies / Home Medications
Allergy/AdvReac Type Severity Reaction Status Date / Time
sulfamethoxazole Allergy Severe Anaphylaxis Verified 06/14/24 21:08
[From Bactrim]
trimethoprim [From Bactrim] Allergy Severe Anaphylaxis Verified 06/14/24 21:08
cephalexin [From Keflex] Allergy Cdiff Verified 06/13/24 10:41
ketorolac tromethamine Allergy Rash Verified 06/13/24 10:41
[From Toradol]
latex Allergy Rash Verified 06/13/24 10:41
oxycodone HCl [From Percocet] Allergy hallucinati Verified 06/13/24 10:41
ons
Penicillins Allergy Rash Verified 06/13/24 10:41
�Medication �Instructions �Recorded �Confirmed �Type
hydralazine 25 mg tablet 25 mg PO TID #30 tabs 06/18/24 11/26/24 Rx
hydrochlorothiazide 25 mg tablet 25 mg PO DAILY 11/26/24 11/26/24 History
ibuprofen 400 mg tablet 400 mg PO Q6HPRN PRN mild pain 11/26/24 11/26/24 History
Review of Systems
-
History Source: Patient
All other systems: Negative unless noted
Physical Exam
Vital Signs
Temp Pulse Resp BP Pulse Ox
98.9 F 79 17 144/75 97
11/26/24 10:46 11/26/24 13:50 11/26/24 13:50 11/26/24 13:30 11/26/24 12:15
Lab Results
11/26/24 10:53
11/26/24 10:53
Troponin I < 0.012 ng/ml 11/26/24 10:53
Physical Exam
General: Well Developed, Well Nourished and No Apparent Distress
HEENT: Normocephalic, Anicteric and Moist Mucous Membranes
Respiratory: Clear and Non Labored Respirations
Cardiac: S1/S2 and Regular Rhythm
Musculoskeletal: No Clubbing, No Cyanosis and No Edema
Skin: Warm and Dry
Neuro: AO x 3 and Nonfocal/Grossly Intact
Psych: Calm
Impression / Plan
-
PCP: [facility] Gardiner
Police Guard: None prior to admission
Impression:
Presented with arm and leg pain, headache
Syncope
Polymorphic VT
HTN
GERD
Anxiety/depression
OCD
Panic disorder
DJD
IBS
DVT 2012
Venous insufficiency
Echo 11/26/2024: Study pending
Plan:
-Presented with arm/leg pain as well as headache and near syncope at home. Syncopal episode witnessed w/ EMS and associated w/ polymorphic VT on tele. Resolved w/ sternal rub.
-Continue IV amiodarone, started in ER. No further arrhythmia noted.
-ECG reviewed. SR with LBBB, QTc 490ms. LBBB noted on prior ECG 10/2022.
-Check echo today.
-K 3.9 with mag 1.8. Continue to follow. Ideally would keep K >4, mag >2. Given IVFs in ER.
-TSH wnl.
-Initial troponin >0.012. Continue to trend.
-Pending trop trend and echo results, will plan for LHC in AM. Keep NPO after midnight.
-Ordered asprin 324mg to be given in ER. Will continue aspirin 81mg daily.
-Following cath, could consider cardiac MRI. Possibly for ICD implant in afternoon tomorrow after cath.
-Head CT with no acute intracranial abnormality.
HPI: eTri is a 69 year old female with PMH of hypertension, GERD, anxiety/depression, OCD, DJD, and IBS who presented to [facility] for evaluation of arm and leg pain with headache over the past few days. On arrival to ER, she had syncopal episode noted
w/ EMS which was associated w/ polymorphic VT on telemetry. Resolved spontaneously and patient has had no further episodes of syncope or VT. Started on amio gtt and remains stable. QTc 490 ms on initial ECG, remains in SR. She notes no chest pain.
Workup in ER has revealed stable thyroid function. K 3.9 with mag 1.8. CXR without active disease. Flu and covid testing negative. Head CT with no acute intracranial abnormality. Initial troponin negative. Reports no prior cardiac history and she
has never been seen by a cloth beamer in the past. Denies any chest pain, palpitations, dizziness, lightheadedness, SOB, or LE edema currently.
Data Reviewed
-
EKG: Tracing Personally Visualized and interpreted
Radiology: Report Reviewed by me
CT Scan: Report Reviewed by me
Labs: Labs Reviewed by me
Old Records: Reviewed
--- NOTE | 2024-11-26 15:38 | W.PN.UPDATE ---
Update Note
Progress Note Update
I saw and examined the patient.
The DEVELOPER ADVOCATE or PA's note was reviewed and I agree with the note.
Comment:
This note serves as an addendum to the H&P by crimping press operator DILLON
Mihaela LUNSFORDURGIS
HPI:
69F Class III obesity, HTN, HX provoked DVT after Rt ankle Fx on hydralzine and HCTZ, no heriditary clotting disorders pw weak and lethargic along with pain in her arms , bilateral hands and bilateral legs as well as headache over the past week.
Asso with myalgia upper arms, shoulders, hands and bilateral legs for several months however patient states they became worse over the past week.
While she was at home she felt the sensation of going to pass out so her son Grey called EMS.
During EMS transportation to the hospital she had episode of V. tach on the monitor that resolved.
The patient reports she had sternal rub performed by EMS.
She was placed on amiodarone cardiology was made aware by emergency room.
ROS:
She denies recent URI, fever, chills, sore throat, chest pain, palpitations, cough, shortness of breath, abdominal pain, nausea, vomiting, diarrhea, urinary symptoms.
PHX
GERD
essential HTN
Anxiety
Depression
OCD
Panic disorder
DJD -cervical, lumbar
spondylolisthesis cervical, lumbar spine
Back pain status post multiple lumbar epidurals
uterine fibroids, uterine ablation
IBS
C. difficile colitis
Venous insufficiency bilateral legs: Chronic bilateral legs with venous stasis dermatitis
HX DVT right ankle 2012 post fracture states (provoked )had negative hematological workup after Coumadin
Vvitamin B12 deficiency
Vitamin D deficiency
Hypomagnesemia
Class III obesity
Reviewed VS:
Vital Signs
Temp Pulse Resp BP Pulse Ox
98.9 F 79 21 149/79 97
11/26/24 10:46 11/26/24 14:45 11/26/24 14:45 11/26/24 14:30 11/26/24 12:15
CXR: No acute cardiopulmonary process
HCT: No acute intracranial abnormality
EKG: NSR 74 bpm, L BBB, QTc 490ms, otherwise normal
Last hospitalist admission:
ASSESSMENT & PLAN
Syncope ; presumed secondary to VT
Syncope in ER with episode of V. tach witnessed
- Nl TSH 2.59
- on IV amiodarone bolus with drip
- on IV NSS 1 L
- ECHO in AM
- TLM monitor
- DCA cardiology consulted
Prolonged QTc 490
- Hold prolonging QTc agents monitor on telemetry
Acute viral illness with bodyaches, headache
Symptoms x 2 to 3 days
- NEG COVID, NEG Flu A & B
- Supportive care : Tylenol as needed
Hyponatremia�mild
s/p 1 L IV NSS in ER
-Follow BMP
Essential HTN
- Hold hydralazine 25 mg 3 times daily
- Hold HCTZ 25 mg daily
Post DVT Venous insufficiency bilateral legs
HX Provoked DVT following right ankle surgery in 2012 post right ankle fracture fracture -provoked
- states had negative hematological workup after Coumadin
Vitamin B12 deficiency
-Check B12
-Patient takes 1-2 times a week not reliable
vitamin D deficiency
-Check vitamin D
Patient takes 1-2 times a week not reliable
Hypomagnesemia
- Check magnesium
- Patient takes 1-2 times a week not reliable
Class III obesity�BMI 41
- Affects all aspects of care
- Weight loss recommended
Other PMH:
DJD -cervical, lumbar
spondylolisthesis cervical, lumbar spine
Back pain status post multiple lumbar epidurals
C. difficile colitis
uterine fibroids status post ablation
IBS
Anxiety and Depression
OCD
Panic disorder
DVT Px: LMWH
Ful code
IVU
[2024-11-26] MEDS: LOW STRENGTH ASPIRIN 324 MG PO (16:39)
[2024-11-26 16:47] LABS: Vitamin D, 25-OH*** 30.5 ng/mL (30-80)
[2024-11-26 17:20] LABS: Vitamin B12 714 pg/ml (239-931)
[2024-11-26] MEDS: LOVENOX 40 MG SC (18:41)
--- NOTE | 2024-11-26 19:21 | PTCARENOTE ---
Rec'd Pt from ED, A,A+Ox3, c/o general body aches upon moving from stretcher to bed. IV Amiodarone infusing via R wrist IV. Attempted to start new IV line, IV team notified and started new line in L hand. IV Amiodarone drip moved to that site. Pt
then c/o pain in L hand while IV was infusing. No redness or swelling noted. IV Amio drip moved back to R wrist which Pt is tolerating. L hand INT is no longer bothering her (without drip running) and site is WNL.
[2024-11-26] MEDS: TYLENOL 650 MG PO (20:13)
[2024-11-27] VITALS (24 sets, daily range): BP systolic 81–151; BP diastolic 41–95; BMI 39.4
[2024-11-27 03:44] LABS: % Basophils 0.3 % (0-2); % Eosinophils 1.1 % (0-6); % Immature Granulocytes 0.9 % (0-0.5); % Lymphocytes 30.2 % (20.5-51.1); % Neutrophils 58.5 % (42.2-75.2); Absolute Eosinophils 0.1 10^3/uL (0-0.7); Absolute Immature Granulocytes 0.1 10^3/uL (0-0.05); Absolute Lymphocytes 2.4 10^3/uL (1.2-3.4); Absolute Monocytes 0.7 10^3/uL (0.1-0.6); Absolute Neutrophils 4.6 10^3/uL (1.4-6.5); Hematocrit 36.1 % (37.0-47.0); Hemoglobin 12.7 g/dL (12.0-16.0); Mean Corp Hgb Conc. 35.2 g/dL (33.0-37.0); Mean Corpuscular Hgb 30.5 pg (27.0-31.0); Mean Corpuscular Volume 86.6 fL (81.0-99.0); Mean Platelet Volume 9.1 fL (7.4-10.4); Nucleated Red Blood Cells % 0 %; Platelet Count 318 10^3/uL (130-400); Red Blood Cell Count 4.17 10^6/uL (4.20-5.40); Red Cell Dist. Width 12.7 % (11.5-14.5); White Blood Cell Count 7.9 10^3/uL (4.8-10.8)
[2024-11-27 04:09] LABS: ALT (SGPT) 37 U/L (0-35); AST (SGOT) 33 U/L (14-36); Albumin 4.2 g/dl (3.5-5.0); Alkaline Phosphatase 96 U/L (38-126); Blood Urea Nitrogen 13 mg/dl (7-17); Calcium 9.6 mg/dl (8.4-10.2); Carbon Dioxide 24 mmol/L (22-30); Chloride 94 mmol/L (98-107); Estimated Creatinine Clearance 85 ml/min; Glucose 123 mg/dl (70-99); HDL Cholesterol 50 mg/dl; LDL Cholesterol, Calculated 83 mg/dl; Magnesium 1.7 mg/dl (1.6-2.3); Potassium 3.7 mmol/L (3.5-5.1); Sodium 130 mmol/L (135-145); Total Bilirubin 0.8 mg/dl (0.2-1.3); Total Cholesterol 162 mg/dl (50-199); Total Protein 6.8 g/dl (6.3-8.2); Triglyceride 149 mg/dl (10-149); Very Low Density Lipoprotein 29 mg/dl (0-30); eGFR > 60.00
[2024-11-27] MEDS: OFIRMEV 100 IV ×2 (04:22→09:30)
--- NOTE | 2024-11-27 04:39 | PTCARENOTE ---
Pt NSR on monitor on Amio gtt. Pt c/o headache, back pain, b/l hands pain, nausea and lightheadedness. Tylenol PO and later Tylenol IV given with minimal result. Pt refused any other medications., stayed 'medications make me more sick'. Pt tearful
and anxious about coming procedure(cath). This nurse stayed with patient for comfort and reassurance. Patient instructed to use call madrid when OOB. Call [place] in reach
[2024-11-27] MEDS: TIGAN 200 MG IM (08:27)
--- NOTE | 2024-11-27 08:37 | PTCARENOTE ---
Addendum entered by Lui Shaw RN 11/27/24 11:36:
Patient anxious, appears to be panicking, headache, neck pain, back pain, dry heaving. Calmed with my presence and listening to her stories about her who 3 years ago, his birthday was yesterday, 'he was my rock'. Ice applied to neck and
head, assisted to sit in chair to alleviate back pain. Tigan given left deltoid, IV Tylenol ordered.
Original Note:
Patient anxious, appears to be panicking, headache, neck pain, back pain, dry heaving, seems to panicking. Calmed with my presence and listening to her stories about her who 3 years ago, his birthday was yesterday, 'he was my rock'. Ice
applied to neck and head, assisted to sit in chair to alleviate back pain. Tigan given left deltoid, IV Tylenol ordered.
[2024-11-27 08:56] LABS: Troponin I < 0.012 ng/ml
[2024-11-27] MEDS: LOW STRENGTH ASPIRIN 81 MG PO (09:27)
--- NOTE | 2024-11-27 10:34 | PTCARENOTE ---
Report called to can labeler. IV called to place another IV preferably in the left arm
--- NOTE | 2024-11-27 11:21 | PTCARENOTE ---
Patient voided pre-procedure 300 cc of yellow urine, 2% CHG wipes to chest, gown changed
[2024-11-27] MEDS: ORETIC PO (11:22)
--- NOTE | 2024-11-27 12:03 | W.PN.UPDATE ---
Addendum entered and electronically signed by Rah Whitehead DO 11/27/24 15:25:
Update:
I spoke with patient, son, and [id number] in room. [id number] on the phone. [id number] reported that she spoke with primary care and discussed the current situation. Primary care on board for implantation of ICD. Once more with
patient, son, [id number] I reviewed procedure in detail and took time to answer all questions. With patient and son, we reviewed once more procedure, benefits, and risks. We discussed ICD indications for primary prevention and secondary
prevention patients including 5 year sudden risk. We also discussed implant procedure in detail including an approximate 1:1000 risk of AZ/stroke/ and a 1% risk of pneumothorax/tamponade/infection/bleeding. We discussed the less than 1%
risk of wires bending, breaking, or tearing through the lifetime of the device requiring surgery or procedure to fix. We discussed the less than 1% risk of device/lead advisory or recall and requirement for monitoring for surveillance. We also
discussed post procedure implant restrictions including positions to avoid with implant arm for first six weeks after implant as well as driving restrictions. We discussed post implant possibility of inappropriate shocks from device and programming
strategies to minimize this risk. Reviewed the importance of ICD. We discussed the differences between a single-chamber, dual-chamber, and PROPERTY ADJUSTER. Patient verbalized understanding and agreed with plan wished to proceed. Family also agreed with plan
and wished to proceed.
Original Note:
Update Note
Progress Note Update
Prior to left heart catheterization, I spoke with Ms Peng. Briefly, patient is a pleasant 69 female with a past medical history of hypertension, GERD, anxiety/depression, OCD, DJD, LBBB, ?hepatitis, allergies, and IBS who presented to [facility] for
evaluation of arm and leg pain with headache over the past few days. Patient experienced witness syncope with polymorphic VT on telemetry associated with syncope. Patient scheduled to undergo LHC to assess for ischemic heart disease. In discussion
with patient prior to LHC, we also discussed the possibility of ICD. Regarding ICD, we discussed ICD indications for primary prevention and secondary prevention patients including 5 year sudden risk. We also discussed implant procedure in
detail including an approximate 1:1000 risk of AZ/stroke/ and a 1% risk of pneumothorax/tamponade/infection/bleeding. We discussed the less than 1% risk of wires bending, breaking, or tearing through the lifetime of the device requiring
surgery or procedure to fix. We discussed the less than 1% risk of device/lead advisory or recall and requirement for monitoring for surveillance. We also discussed post procedure implant restrictions including positions to avoid with implant arm
for first six weeks after implant as well as driving restrictions. We discussed post implant possibility of inappropriate shocks from device and programming strategies to minimize this risk. Patient has chronic LBBB (144ms) with stable QTc. LVEF by
echocardiogram 50%, NYHA2 symptoms. No evidence of bradycardia on ECG. Therefore, if no evidence of ischemic heart disease, patient to benefit from secondary prevention ICD as previously recommended by my EP colleague, Dr Lopez. Given above
conditions, patient would undergo single chamber ICD implantation as she does not meet criteria for dual chamber or CRTD at this current juncture. Discussed with patient at length regarding types of devices and indictions. Consent obtained for ICD
system. I took time to answer all questions.
--- NOTE | 2024-11-27 12:37 | ITS.CL.CATH ---
Lending Activities Supervisor - Catheterization
Cardiac Catheterization
Procedure Report:
LEFT HEART CATHETERIZATION
Date of Procedure: November 27, 2024
Referring: Dr. Wilver Lopez
PROCEDURES:
1. Left heart catheterization with coronary and single-plane left ventriculography
INDICATION: Syncope with possible polymorphic VT
ACCESS: Right radial artery, 5 Urdu sheath
HEMODYNAMICS : (mmHg)
AO (s/d) : 126/79
LV (s/d) : 134/21
LVEDP : 31
CORONARY FINDINGS
DOMINANCE: Right
LEFT MAIN: Normal
LEFT ANTERIOR DESCENDING: The LAD arises normally from the left main and runs in the anterior interventricular groove as a medium caliber vessel. A myocardial bridge is noted in the mid LAD but no obstructive coronary disease is appreciated. The
distal vessel wraps around the apex.
CIRCUMFLEX: The circumflex is a medium caliber nondominant vessel. OM1 arises very proximally and runs in the course typical of a ramus intermedius. There is a 40% ostial narrowing. The circumflex terminates in a large OM 2 that bifurcates
distally. The proximal to mid circumflex and OM 2 are widely patent
RIGHT CORONARY ARTERY: The right coronary artery is a dominant vessel is widely patent over its course. The PDA is a moderate to large caliber vessel and is widely patent. The posterolateral branch is widely patent
VENTRICULOGRAPHY: Left ventriculography is performed in an MONTES projection. The digital single-plane left ventricular ejection fraction is estimated at 60% and no regional wall motion abnormalities are noted
RADIATION SUMMARY: Fluoro Time (min): 4.9, Dose (mGy): 365, DAP (Gy.cm2) : 30.8
Closure Device: TR band
CONCLUSIONS
1. Nonobstructive coronary disease
2. Preserved left ventricular systolic function
RECOMMENDATIONS
1. EP to evaluate for possible ICD given polymorphic ventricular tachycardia and underlying left bundle branch block
Copy to: Dr. Wilver Lopez
--- NOTE | 2024-11-27 12:46 | PTCARENOTE ---
Patient received from quality assurance lab technician. AOx3,anxious. NSR BBB. Amino gtt restarted at 0.5mg/hr. Right radial band intact, POX 96%. Lights dimmed, mild headache
--- NOTE | 2024-11-27 14:33 | CM ---
Chart reviewed. Patient is independent of ADLS, lives alone in a 2 [address], 1st floor set up, 4 L[address] through the garage and 3 [address] through the front, 0 DME. Patient's 3 years ago, her son has been staying with her . Plan is for
the patient to return home. CM to follow
[2024-11-27] MEDS: VANCOCIN 530 MG IV (14:51)
--- NOTE | 2024-11-27 15:12 | PTCARENOTE ---
Report called to the dental laboratory technician.
--- NOTE | 2024-11-27 16:56 | ITS.CL.ICD ---
Field Services Director - ICD
Implantable Cardioverter Defibrillator
Procedure Report:
Primary Care: JAVI Foreman
Procedure Date: 11/27/2024
Name of procedure:
1. Placement of a single-chamber ICD
2. Subclavian venography
History:
1. Patient is a pleasant 69 year old female with history of hypertension, GERD, anxiety/depression, OCD, panic disorder, IBS, DJD, DVT Venous insufficiency, obesity, left bundle branch block, possible hepatitis, who presented in the setting of
syncope with polymorphic VT. Patient had aborted sudden cardiac with loss of consciousness and PMVT. Patient underwent echocardiogram which showed 50% EF. LHC negative for ischemic heart disease. Due to syncope with polymorphic VT, patient
meets criteria for secondary prevention ICD. Patient does not have bradycardia or indication for pacing. Patient has LBBB (QRS <150 ms). NYHA II reported symptoms.
2. Please refer to H&P for complete history.
Indication:
Aborted sudden cardiac
Syncope with polymorphic VT
Methods:
After informed consent was obtained, the patient was brought to the EP laboratory in a postabsorptive, nonsedated state. Peripheral IV access was established. Prophylactic antibiotics were administered prior to incision. Continuous ECG, blood
pressure, and pulse oximetry were initiated. Cardioversion patch electrodes were placed on the patient's chest and back. A grounding patch was applied to the skin. Sedation was administered by anesthesia services.
In order to define the extrathoracic portion of the subclavian vein and exclude significant venous obstruction or anomalous anatomy, subclavian venography was performed prior to the procedure. Using the patient's left peripheral IV, contrast was
injected and images were recorded. The left subclavian vein and SVC were found to be widely patent.
The left chest was prepared and draped in a sterile fashion. A time-out was performed. Local anesthesia was injected in the subcutaneous tissue in the infraclavicular area. An incision was made medial to the deltopectoral groove. The subcutaneous
tissue was dissected the level of the prepectoral fascia. A subcutaneous pocket was created. Under fluoroscopic guidance and with the assistance of the images from the venogram, venipuncture was made using micropuncture and modified Seldinger
technique. This was performed in the extrathoracic portion of the subclavian vein. Guidewire was passed and a peel-away sheath was placed and used to advance lead into the circulation.
Using fluoroscopic guidance, the leads were positioned. The RV lead was advanced to the RV/outflow tract. Ventricular ectopy was recorded. Images were taken in MONTES and MOHAWK views to ensure appropriate lead placement. The lead tip was subsequently
positioned on the apical septum. Adequate sensing and pacing parameters were found, and no diaphragmatic stimulation was seen with high-output pacing. The sheath was split and the lead was secured to the fascia with Ethibond ties.
The pocket was flushed with antibiotic solution and hemostasis was assured. The generator was connected to the leads and placed inside the pocket. The wound was closed with 3 running layers of absorbable suture, and steri-strips were applied.
Dressing applied over steri-strips in standard fashion.
Following the procedure, the patient was taken to the recovery area in stable condition. A chest x-ray to be obtained in patient.
Lead parameters and device programming:
- RV Lead (Medtronic, Model 5488U38, #[id number]): Sensing 5.0 mV, Pacing threshold 0.6 V at 0.4 ms, Imp 850 Ohm
- Device: Medtronic, Model [id number] ICD (#[id number]), programmed VVI 40
- Zones: Monitor 150-188; >188 VF zone with ATP while charging and shocks
Conclusions:
1. Successful placement of a single-chamber ICD
2. Subclavian venography
Recommendations:
- Return to patient room
- Chest x-ray this evening, [facility] in AM
- IV antibiotics while the patient is admitted.
- Pressure dressing to be removed in AM, aquacell to remain until wound check
- Follow-up for incision check in the office in 7-10 days post-discharge
Rah Whitehead DO
Clinical Cardiac Biomedical Equipment Support Specialist
cc: JAVI Foreman
--- NOTE | 2024-11-27 17:23 | PTCARENOTE ---
Patient received from the paint laboratory technician, AO x 3, sleepy but arouses easily. Left chest dressing intact with left arm immobilizer. Precautions reviewed. VSS, EKG completed, sons updated at bedside
--- NOTE | 2024-11-27 17:27 | W.PN.HOSP.TC ---
Today's Communication/Plan
-
Assessment / Plan
Assessment / Plan
Gen-AAOx3, NAD
HEENT-NC, AT, anicteric, clear oral mm
Neck-supple
CV-reg, no M, +S1/S2
Lungs-clear B/L
Abd-soft, NT, ND
Musculoskeletal-no edema, no deformity
Skin-warm and dry
Neuro-grossly non-focal
Psych-calm, cooperative
Unstable V. tach:
-Patient had witnessed syncope secondary to V. tach
-Started on IV amiodarone drip following bolus
-Echocardiogram shows LVEF 50% with normal diastolic function, mild to synchrony with baseline LBBB, relatively normal valvular function
-Cardiology following, plan for left heart catheterization today 11/27 with possible ICD placement
Hyponatremia:
-Mild, given IV fluids
-Will monitor
Hypertension:
-Holding home HCTZ currently
CODE STATUS: Full code
Anticipated Discharge: 24 - 48 hours
Subjective/Interval History
-
Date of Service: November 27, 2024
Examined at bedside's morning. Extremely anxious about planned cardiac catheterization.
Objective Data
-
Vital Signs:
Vital Signs
Temp Pulse Resp BP Pulse Ox
98.3 F 64 16 144/72 97
11/27/24 08:10 11/27/24 16:30 11/27/24 08:10 11/27/24 14:06 11/27/24 14:45
I&O
11/26/24 11/27/24 11/28/24
06:59 06:59 06:59
Intake Total 200 / 200
Output Total 300 / 300 1450 / 1450
Balance -100 / -100 -1450 / -1450
Review of Systems
-
History Source: Patient
All other systems: Reviewed and negative
Physical Exam
-
General: No Apparent Distress
[2024-11-27] MEDS: LOVENOX 40 MG SC (18:58)
--- NOTE | 2024-11-27 19:08 | PTCARENOTE ---
Patient ate dinner, tolerated. Assisted to the bathroom, voided 500 cc of yellow urine. Patient taken to radiology for post procedure CXR. Denies pain. NSR HR 80-90's, BP 113/66
[2024-11-27] MEDS: ANESTHETIC LOZENGE 1 LOZENGE PO (21:07)
[2024-11-27] MEDS: TYLENOL 650 MG PO (21:07)
--- NOTE | 2024-11-27 21:17 | W.PN.UPDATE ---
Update Note
Progress Note Update
switched to po amiodarone 200mg tid and stopped IV
will plan dc on amiodarone 200mg bid x 1 month then daily
will place on one month driving restrict
[2024-11-27] MEDS: PACERONE 200 MG PO (22:23)
[2024-11-28] MEDS: TYLENOL 650 MG PO (03:34)
[2024-11-28 03:45] VITALS: BP 107/70
[2024-11-28 03:57] VITALS: BMI 39.8
[2024-11-28 04:27] LABS: % Basophils 0.3 % (0-2); % Eosinophils 1.2 % (0-6); % Immature Granulocytes 0.8 % (0-0.5); % Lymphocytes 13.5 % (20.5-51.1); % Monocytes 6.7 % (1.7-9.3); % Neutrophils 77.5 % (42.2-75.2); Absolute Eosinophils 0.1 10^3/uL (0-0.7); Absolute Immature Granulocytes 0.1 10^3/uL (0-0.05); Absolute Lymphocytes 1.3 10^3/uL (1.2-3.4); Absolute Monocytes 0.7 10^3/uL (0.1-0.6); Absolute Neutrophils 7.7 10^3/uL (1.4-6.5); Hemoglobin 12.4 g/dL (12.0-16.0); Mean Corp Hgb Conc. 34.4 g/dL (33.0-37.0); Mean Corpuscular Hgb 30.2 pg (27.0-31.0); Mean Corpuscular Volume 87.8 fL (81.0-99.0); Nucleated Red Blood Cells % 0 %; Platelet Count 308 10^3/uL (130-400); Red Cell Dist. Width 12.7 % (11.5-14.5); White Blood Cell Count 9.9 10^3/uL (4.8-10.8)
[2024-11-28 04:51] LABS: ALT (SGPT) 37 U/L (0-35); AST (SGOT) 37 U/L (14-36); Albumin 4.4 g/dl (3.5-5.0); Alkaline Phosphatase 89 U/L (38-126); Blood Urea Nitrogen 13 mg/dl (7-17); Calcium 8.6 mg/dl (8.4-10.2); Carbon Dioxide 23 mmol/L (22-30); Chloride 93 mmol/L (98-107); Estimated Creatinine Clearance 85 ml/min; Glucose 127 mg/dl (70-99); Magnesium 1.7 mg/dl (1.6-2.3); Potassium 3.9 mmol/L (3.5-5.1); Sodium 128 mmol/L (135-145); Total Bilirubin 0.9 mg/dl (0.2-1.3); Total Protein 6.8 g/dl (6.3-8.2); eGFR > 60.00
[2024-11-28 07:08] VITALS: BP 155/70
--- NOTE | 2024-11-28 07:32 | W.PN.CARDCBS ---
Today's Communication / Plan
-
Can remove pressure dressing and maintain Aquacel
Sling off this afternoon
Amiodarone 200 mg twice daily x 1 month then 200 mg daily thereafter
Driving restrict x 1 month
Outpatient wound check in 7 to 10 days
Stable for discharge
Impression / Plan
-
PCP: JAVI Gardiner
[employer]a Architect: None prior to admission
Impression:
Presented with arm and leg pain, headache
Syncope
Polymorphic VT
HTN
GERD
Anxiety/depression
OCD
Panic disorder
DJD
IBS
DVT 2012
Venous insufficiency
Echo 11/26/2024: Study pending
Plan:
-Change to p.o. amiodarone 200 mg twice daily x 1 month and then switch to daily
-Outpatient wound check in 7 to 10 days at our office
-Outpatient cardiac MRI in the next 2 to 3 months we will arrange
-Driving restriction x 1 month
-Stable cardiovascular for discharge
HPI: Teri is a 69 year old female with PMH of hypertension, GERD, anxiety/depression, OCD, DJD, and IBS who presented to [facility] for evaluation of arm and leg pain with headache over the past few days. On arrival to ER, she had syncopal episode noted
w/ EMS which was associated w/ polymorphic VT on telemetry. Resolved spontaneously and patient has had no further episodes of syncope or VT. Started on amio gtt and remains stable. QTc 490 ms on initial ECG, remains in SR. She notes no chest pain.
Workup in ER has revealed stable thyroid function. K 3.9 with mag 1.8. CXR without active disease. Flu and covid testing negative. Head CT with no acute intracranial abnormality. Initial troponin negative. Reports no prior cardiac history and she
has never been seen by a gluing machine adjuster in the past. Denies any chest pain, palpitations, dizziness, lightheadedness, SOB, or LE edema currently.
Progress Note - [employer]
Subjective
Date of Service: November 28, 2024
Feels well
Objective
Labs:
11/28/24 03:50
11/28/24 03:50
Labs
Hgb 12.4 g/dL (12.0-16.0) 11/28/24 03:50
Hct 36.0 % (37.0-47.0) L 11/28/24 03:50
Plt Count 308 10^3/uL (130-400) 11/28/24 03:50
Sodium 128 mmol/L (135-145) L 11/28/24 03:50
Potassium 3.9 mmol/L (3.5-5.1) 11/28/24 03:50
BUN 13 mg/dl (7-17) 11/28/24 03:50
Creatinine 0.7 mg/dL (0.6-1.0) 11/28/24 03:50
Glucose 127 mg/dl (70-99) H 11/28/24 03:50
Troponins
11/26/24 11/27/24 11/27/24
10:53 08:20 15:15
Troponin I < 0.012 < 0.012 Cancelled
11/27/24
23:15
Troponin I Cancelled
Vital Signs and I&O:
Vital Signs
Temp Pulse Resp BP Pulse Ox
97.9 F 75 18 107/70 95
11/28/24 03:42 11/28/24 03:45 11/28/24 03:42 11/28/24 03:45 11/28/24 03:42
Vital Signs
Temp Pulse Resp BP Pulse Ox
97.9 F 75 18 107/70 95
11/28/24 03:42 11/28/24 03:45 11/28/24 03:42 11/28/24 03:45 11/28/24 03:42
Intake & Output
0211/27/24 11/28/24 11/29/24
06:59 06:59 06:59 06:59
Intake Total 200 / 200 2146
Output Total 300 / 300 2074
Balance -100 / -100 72 / 72
Physical Exam
Physical Exam
����Physical Exam
���������������������General:��no apparent distress, not acutely ill
���������������������������Neck:��supple. no meningeal signs. normal psoterior pharynx
������������������������
���������������������������Heart:��s1/s2 regular rate and rhythm, no murmur. equal radial pulses.
��������������������������Lungs: ��no acute respiratory distress. clear bilaterally
����������������������Abdomen:�normal bowel sounds. not tender. no CVAT
��������������������������Neuro:��alert and oriented. no focal neurological deficits
������������������������������Skin: ��no rash
�����������������������Psychiatric:�well kept. interactive and cooperative
�����������������������Extremities:��no edema. no calf tenderness. negative homans. good distal pulses
��
�
[2024-11-28] MEDS: ORETIC 25 MG PO (08:38)
[2024-11-28 08:40] VITALS: BP 108/47
[2024-11-28] MEDS: LOW STRENGTH ASPIRIN 81 MG PO (08:41)
[2024-11-28] MEDS: PACERONE 200 MG PO (08:41)
[2024-11-28 11:11] VITALS: BP 128/66
--- NOTE | 2024-11-28 12:15 | PTCARENOTE ---
Patient in chair anxious about discharge. Walking to the bathroom. NSR BBB, left chest wall Aquacel small drainage, pressure dressing removed. Sling in place. Precautions reviewed. Call [place] in reach
[2024-11-28] MEDS: NSS 500 IV (12:42)
--- NOTE | 2024-11-28 12:57 | W.DCSUMMARY ---
Discharge Summary
Discharge Data
Date of Admission: 11/26/24
Date of Discharge: 11/28/24
-
Pending Results: No
Hospital Course
Ms. Peng is a 69-year-old female with medical history of LBBB, hypertension, anxiety and depression, OCD, panic disorder, degenerative joint disease, DVT, and GERD who was admitted following a syncopal episode due to polymorphic V. tach in
ambulance while en route to ER. Her V. tach resolved spontaneously after sternal rub. She had no further episodes of syncope or ventricular tachycardia after presenting to the hospital. She was immediately started on amiodarone drip. She does
report history of intermittent syncope since childhood which has never been worked up by client relations representative. During this hospitalization her echocardiogram showed preserved EF. No evidence of ischemia was noted on coronary angiography. She underwent
successful placement of ICD on 11/27/2024. She was switched to oral amiodarone with a loading dose of 200 mg twice daily for 1 month, after which she will transition to 200 mg daily. At time of hospital discharge she was hemodynamically stable.
She is restricted from driving for 1 month. She will need outpatient cardiology follow-up in 7 to 10 days for wound check at the ICD implantation site. Her home HCTZ and hydralazine will be held at discharge due to borderline low blood pressures.
Now that she has been started on amiodarone, she should follow-up with her PCP and client relations representative for ongoing blood pressure monitoring and resumption of her previous antihypertensive medications if needed.
Gen-AAOx3, NAD
HEENT-NC, AT, anicteric, clear oral mm
Neck-supple
CV-reg, no M, +S1/S2
Lungs-clear B/L
Abd-soft, NT, ND
Musculoskeletal-no edema, no deformity
Skin-warm and dry, left chest ICD implantation site clean dry intact
Neuro-grossly non-focal
Psych-calm, cooperative
Discharge Plan
-
Patient Disposition: Home (Routine Discharge)
Discharge Diagnosis/Procedures: Cardiac catheterization
ICD implant
Diet: Low Cholesterol
Activity: As tolerated
Driving Restrictions: No driving for 1 week
Activity Restrictions/Additional Instructions:
Ms. Peng is a 69-year-old female with medical history of LBBB, hypertension, anxiety and depression, OCD, panic disorder, degenerative joint disease, DVT, and GERD who was admitted following a syncopal episode due to polymorphic V. tach in
ambulance while en route to ER. Her V. tach resolved spontaneously after sternal rub. She had no further episodes of syncope or ventricular tachycardia after presenting to the hospital. She was immediately started on amiodarone drip. She does
report history of intermittent syncope since childhood which has never been worked up by client relations representative. During this hospitalization her echocardiogram showed preserved EF. No evidence of ischemia was noted on coronary angiography. She underwent
successful placement of ICD on 11/27/2024. She was switched to oral amiodarone with a loading dose of 200 mg twice daily for 1 month, after which she will transition to 200 mg daily. At time of hospital discharge she was hemodynamically stable.
She is restricted from driving for 1 month. She will need outpatient cardiology follow-up in 7 to 10 days for wound check at the ICD implantation site. Her home HCTZ and hydralazine will be held at discharge due to borderline low blood pressures.
Now that she has been started on amiodarone, she should follow-up with her PCP and client relations representative for ongoing blood pressure monitoring and resumption of her previous antihypertensive medications if needed.
Stand Alone Forms: DC Instructions- Cath/EP Lab, DC Inst - Implanted Device
Referrals:
[facility] [Provider Group] - 12/03/24 3:20 pm (Post device incision check appointment)
Linh Lopez CRNP [Family Provider] -
Sherrie Robertson CRNP [Specified Professional Personl] - 12/25/24 3:00 pm (Cardiology followup appointment)
Prescriptions:
New
amiodarone 200 mg Tablet
200 mg PO TID 30 Days Qty: 90 0RF
aspirin 81 mg Tablet,Chewable
81 mg PO DAILY 30 Days Qty: 30 0RF
Continued
ibuprofen 400 mg Tablet
400 mg PO Q6HPRN PRN (Reason: mild pain)
Held
hydralazine 25 mg tablet
25 mg PO TID Qty: 30 0RF
Hold Instructions: Hold blood pressure medications until follow-up blood pressure checks with primary care physician and cardiology, can restart as needed
hydrochlorothiazide 25 mg Tablet
25 mg PO DAILY
Hold Instructions: Hold blood pressure medications until follow-up blood pressure checks with primary care physician and cardiology, can restart as needed
Discharge Orders:
Discharge Patient (As Directed); Ordered 11/28/24
Ordered By: Blayne Xavier
Care Plan Goals
Care Plan Goals:
Problem: Readiness for enhanced knowledge related to diagnosis and treatment plan
Goal: Understand your diagnosis and treatment plan needs, including medications if applicable.
Instructions: Know your diagnosis, underlying causes and treatment plan options, including medications if applicable. Consult with your health care team to learn about your diagnosis and treatment plan, including medications if applicable.
Discharge Date and Time
Print Language: NORTHER[place] IRISH
--- NOTE | 2024-11-28 14:39 | PTCARENOTE ---
Discharge teaching completed, patient and son verbalized understanding. IV and telemetry removed. Manual for device given to patient. Patient escorted to son car in a wheelchair
== END 2024-11-28 14:46 | disposition home or self-care (01) | DRG 277 ==
LOC: IVU 15:39
PROVIDERS: Clinical Nurse Specialist Family Health; Internal Medicine Cardiovascular Disease; Internal Medicine Interventional Cardiology; Physician Assistant; ADMITTING PHYSICIAN Internal Medicine; ATTENDING PHYSICIAN Internal Medicine; EMERGENCY PHYSICIAN Emergency Medicine; FAMILY PHYSICIAN Nurse Practitioner Adult Health; OTHER PHYSICIAN Internal Medicine Cardiovascular Disease
PROC: 02HK3KZ Insertion of Defibrillator Lead into Right Ventricle, Percutaneous Approach (ICD-10-PCS; 2024-11-27)
PROC: B215YZZ Fluoroscopy of Left Heart using Other Contrast (ICD-10-PCS; 2024-11-27)
PROC: 0JH608Z Insertion of Defibrillator Generator into Chest Subcutaneous Tissue and Fascia, Open Approach (ICD-10-PCS; 2024-11-27)
PROC: B211YZZ Fluoroscopy of Multiple Coronary Arteries using Other Contrast (ICD-10-PCS; 2024-11-27)
PROC: 4A023N7 Measurement of Cardiac Sampling and Pressure, Left Heart, Percutaneous Approach (ICD-10-PCS; 2024-11-27)
DX: I47.29 Other ventricular tachycardia (principal); E87.1 Hypo-osmolality and hyponatremia; Z68.41 Body mass index [BMI] 40.0-44.9, adult; I25.10 Atherosclerotic heart disease of native coronary artery without angina pectoris; I44.7 Left bundle-branch block, unspecified; R55 Syncope and collapse; I10 Essential (primary) hypertension; K21.9 Gastro-esophageal reflux disease without esophagitis; F32.A Depression, unspecified; F41.9 Anxiety disorder, unspecified; F41.0 Panic disorder [episodic paroxysmal anxiety]; F42.9 Obsessive-compulsive disorder, unspecified; E66.813 Obesity, class 3; E53.8 Deficiency of other specified B group vitamins; E55.9 Vitamin D deficiency, unspecified; I87.2 Venous insufficiency (chronic) (peripheral); K58.9 Irritable bowel syndrome, unspecified; Z86.718 Personal history of other venous thrombosis and embolism; Z11.52 Encounter for screening for COVID-19; Z88.2 Allergy status to sulfonamides; Z88.0 Allergy status to penicillin; Z88.1 Allergy status to other antibiotic agents; Z88.5 Allergy status to narcotic agent; Z79.899 Other long term (current) drug therapy
CPT/HCPCS: 33249; 70450; 71045; 80053; 80061; 82306; 82607; 83735; 84443; 84484; 85025; 87502; 87811; 93005; 93306; 93458; 96361; 96374; 99291; C1722; C1777; C1892; C1894; Q9967